=== PATIENT | male | born 1955 | race Caucasian/White ===

== ENCOUNTER 2016-12-30 14:02 | Inpatient (IN) | payer MEDICAID ==
--- NOTE | 2016-12-30 14:40 | ED ---
General Adult HPI <Daniel Gomez - Last Filed: 12/30/16 14:51> - General Source: patient, RN notes reviewed Mode of arrival: ambulatory Limitations: no limitations <Kathrin De Paz - Last Filed: 12/30/16 16:49> - General Chief complaint: ENT Stated complaint: Ear ache Time Seen by Provider: 12/30/16 14:15 - History of Present Illness Initial comments: This is a 61-year-old male who presents with right ear pain 4 days. 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 With further questioning patient also admits to a sore throat and painful swallowing. Patient also complains of some mild neck pain. Patient has been on 2 days of Augmentin for this right ear pain. Patient denies any fever/chills, cough, congestion, or headache. Patient is not on any anticoagulants. Patient denies any recent shortness breath, chest pain, abdominal pain, nausea/vomiting/ diarrhea, back pain, numbness, tingling, hematuria, or visual changes, or any other complaints. (Kathrin De Paz) - Related Data Home Medications Medication Instructions Recorded Confirmed Aspirin [Adult Low Dose Aspirin EC] 81 mg PO 12/30/16 Levothyroxine Sodium [Synthroid] 100 mcg PO DAILY 12/30/16 12/30/16 Lisinopril [Zestril] 10 mg PO DAILY 12/30/16 12/30/16 Simvastatin [Zocor] 20 mg PO HS 12/30/16 12/30/16 metFORMIN HCL [metFORMIN HCL ER] 750 mg PO DAILY 12/30/16 12/30/16 Allergies Allergy/AdvReac Type Severity Reaction Status Date / Time No Known Allergies Allergy Verified 12/30/16 14:12 Review of Systems ROS Other: All systems not noted in ROS Statement are negative. <Daniel Gomez - Last Filed: 12/30/16 14:51> ROS Other: All systems not noted in ROS Statement are negative. <Kathrin De Paz - Last Filed: 12/30/16 16:49> ROS Statement: Those systems with pertinent positive or pertinent negative responses have been documented in the HPI. Past Medical History Past Medical History: Diabetes Mellitus, Hypertension, Supraventricular Tachycardia (SVT), Thyroid Disorder History of Any Multi-Drug Resistant Organisms: None Reported Past Surgical History: Cardiac Ablation, Heart Catheterization Past Psychological History: No Psychological Hx Reported Smoking Status: Never smoker Past Alcohol Use History: None Reported Past Drug Use History: None Reported <Kathrin De Paz - Last Filed: 12/30/16 16:49> General Exam <Daniel Gomez - Last Filed: 12/30/16 14:51> Limitations: no limitations <Kathrin De Paz - Last Filed: 12/30/16 16:49> - General Exam Comments Initial Comments: General: The patient is awake and alert, in no distress, and does not appear acutely ill. Eye: Pupils are equal, round and reactive to light, extra-ocular movements are intact. No nystagmus. There is normal conjunctiva bilaterally. No signs of icterus. Ears: TMs pink and pearly with intact cone of light bilaterally. Normal external ear canals Nose: Nasal turbinates pink and moist Mouth and throat: There is a right sided swelling to the posterior pharynx with mild erythema. There are multiple areas of tooth decay but no erythema surrounding any teeth and no sign of tooth abscess. There are moist mucous membranes and no oral lesions. Neck: Mild tenderness to the anterior portion of the neck on the right side. The neck is supple, there is no JVD. Cardiovascular: There is a regular rate and rhythm. No murmur, rub or gallop is appreciated. Respiratory: Lungs are clear to auscultation, respirations are non-labored, breath sounds are equal. No wheezes, stridor, rales, or rhonchi. Musculoskeletal: Normal ROM, no tenderness. Strength 5/5. Sensation intact. Radial pulses equal bilaterally 2+. Neurological: A&O x 3. CN II-XII intact, There are no obvious motor or sensory deficits. Coordination appears grossly intact. Speech is normal. Skin: Skin is warm and dry and no rashes or lesions are noted. Psychiatric: Cooperative, appropriate mood & affect, normal judgment. (Kathrin De Paz) Medical Decision Making <JasonDaniel sanchez - Last Filed: 12/30/16 14:51> - Lab Data Result diagrams: 12/30/16 15:08 12/30/16 15:08 <Kathrin De Paz - Last Filed: 12/30/16 16:49> - Medical Decision Making Medical decision making. I examined the patient's throat unable to even identify the uvula the right side of the pharynx is swollen. He feels as though it's swollen mildly down the back of his throat. Local area was numbed with Hurricaine spray. #18 needle was inserted approximately 1 cm no pus was found. Patient will have a CT of the pharynx and neck to rule out retropharyngeal abscess. Dr. Gomez (Daniel Gomez) This is a 61-year-old male presents with right ear pain and mild sore throat 4 days. On physical exam There is a right sided swelling to the posterior pharynx with mild erythema. There are multiple areas of tooth decay but no erythema surrounding any teeth and no sign of tooth abscess. There are moist mucous membranes and no oral lesions. Bilateral tympanic membranes without erythema, intact cone of light bilaterally. A rapid strep was done and came back negative. Basic labs were done and reviewed. Blood cultures are pending. Patient was given a dose of Tylenol as he developed a fever during his stay in the [facility]. CT of the neck with contrast was done and reviewed showing: Abnormality right extra-axial brain, meningioma versus acute subacute extra-axial hemorrhage. Consider correlation with old outside head CT and for short-term noncontrast CT brain follow-up in 12-24 hours time to further assess. Report by Dr. Noel. I discussed the results with patient and his who was also present in the room. I discussed this case with attending physician Dr. Gomez who also examined the patient. At this time the on-call physician Dr Blake was contacted regarding patient admission. At this time patient will be admitted as an inpatient for IV antibiotics and a repeat computed tomography scan in 12-24 hours for further evaluation. Patient and were receptive to this plan patient will be admitted as an inpatient. (Kathrin De Paz) - Lab Data Lab Results 12/30/16 12/30/16 12/30/16 Range/Units 14:24 15:08 15:08 WBC 12.2 H (3.8-10.6) k/uL RBC 5.17 (4.30-5.90) m/uL Hgb 15.5 (13.0-17.5) gm/dL Hct 45.4 (39.0-53.0) % MCV 87.8 (80.0-100.0) fL MCH 29.9 (25.0-35.0) pg MCHC 34.1 (31.0-37.0) g/dL RDW 12.6 (11.5-15.5) % Plt Count 219 (150-450) k/uL Neutrophils % 83 % Lymphocytes % 10 % Monocytes % 4 % Eosinophils % 2 % Basophils % 0 % Neutrophils # 10.2 H (1.3-7.7) k/uL Lymphocytes # 1.2 (1.0-4.8) k/uL Monocytes # 0.5 (0-1.0) k/uL Eosinophils # 0.2 (0-0.7) k/uL Basophils # 0.0 (0-0.2) k/uL Sodium 142 (137-145) mmol/L Potassium 4.7 (3.5-5.1) mmol/L Chloride 105 (98-107) mmol/L Carbon Dioxide 23 (22-30) mmol/L Anion Gap 14 mmol/L BUN 17 (9-20) mg/dL Creatinine 1.10 (0.66-1.25) mg/dL Est GFR (MDRD) Af Amer >60 (>60 ml/min/1.73 sqM) Est GFR (MDRD) Non-Af >60 (>60 ml/min/1.73 sqM) Glucose 98 (74-99) mg/dL Calcium 10.1 (8.4-10.2) mg/dL Group A Strep Rapid Negative (Negative) Disposition <Daniel Gomez - Last Filed: 12/30/16 14:51> Decision Time: 16:49 <Kathrin De Paz - Last Filed: 12/30/16 16:49> Clinical Impression: Peritonsillar cellulitis, Failure of outpatient treatment Disposition: ADMITTED IP TO THIS [facility] Referrals: Kunal Menon MD [Primary Care Provider] - 1-2 days
[2016-12-30] MEDS ORDERED: RX INFO: IV CONTRAST WAS GIVEN 1 EACH MISC MISCELLANE PRN ×2 (14:50→14:53)
[2016-12-30 15:20] LABS: Basophils % (A) 0 %; CH 30.4; CHCM 34.7; Eosinophils # (A) 0.2 k/uL (0-0.7); Eosinophils % (A) 2 %; HCT 45.4 % (39.0-53.0); HDW 2.67; HGB 15.5 gm/dL (13.0-17.5); Luc % (Auto) 1; Lymphocytes # (A) 1.2 k/uL (1.0-4.8); Lymphocytes % (A) 10 %; MCH 29.9 pg (25.0-35.0); MCHC 34.1 g/dL (31.0-37.0); MCV 87.8 fL (80.0-100.0); Mean Platelet Volume 6.4; Monocytes # (A) 0.5 k/uL (0-1.0); Monocytes % (A) 4 %; Neutrophils # (A) 10.2 k/uL (1.3-7.7); Neutrophils % (A) 83 %; RBC 5.17 m/uL (4.30-5.90); RDW 12.6 % (11.5-15.5); WBC 12.2 k/uL (3.8-10.6); WBC (Perox) 12.49
[2016-12-30] MEDS ORDERED: ACETAMINOPHEN TAB 500 MG TAB PO STA (15:21)
[2016-12-30] MEDS: BENZOCAINE SPRAY 100 APPLIC/CAN MUCOUS MEM PRN (15:25)
[2016-12-30 15:30] LABS: Anion Gap 14 mmol/L; Blood Urea Nitrogen 17 mg/dL (9-20); Calcium 10.1 mg/dL (8.4-10.2); Carbon Dioxide 23 mmol/L (22-30); Chloride 105 mmol/L (98-107); Glucose 98 mg/dL (74-99); Non-African American GFR(MDRD) >60 (>60 ml/min/1.73 sqM); Potassium 4.7 mmol/L (3.5-5.1); Sodium 142 mmol/L (137-145)
--- NOTE | 2016-12-30 16:06 | CT ---
EXAMINATION TYPE: CT soft tissue neck w con DATE OF EXAM: 12/30/2016 3:56 PM HISTORY: Patient complains of right side facial, submandibular, and right side neck swelling, pain, a nd redness x4 days. COMPARISON: NONE CT DLP: 419.6 mGycm. Automated Exposure Control for Dose Reduction was Utilized. TECHNIQUE: CT scan of the neck is performed with IV Contrast, patient injected with 100 mL of Omnipa que 300, axial images are obtained, coronal and sagittal reformatted images are reviewed. FINDINGS: Airway: Thyroid gland is atrophic or absent. Parotid/submandibular glands: No gross abnormality seen. Carotid/Vascular Structures: There is mild to moderate calcified plaque in both carotid bulbs extendi ng into proximal internal carotid arteries. No hemodynamically significant stenosis is identified kathy aterally. Dominant left vertebral artery is incidentally noted. Osseous Structures: Spine is straightened on sagittal images. Other: There are prominent but subcentimeter lymph nodes scattered throughout the neck bilaterally, l argest is seen on the right sided submandibular level just above the hyoid bone measuring 14 x 7 mm o n axial image 52. Greater than 1 cm neck lymph nodes are clearly seen. No well-formed fluid collectio n or abscess is noted. There is 2.1 x 1.2 cm hyperdense structure extra-axial right temporal parietal level on axial image 9 6, differential includes meningioma versus acute/subacute extra-axial hemorrhage. IMPRESSION: Abnormality right extra-axial brain, meningioma versus acute/subacute extra-axial hemorrh age. Consider correlation with old outside head CT and/or short-term noncontrast CT brain follow-up in 12 - 24 hours time to further assess.
[2016-12-30] MEDS ORDERED: HYDROcodone/APAP 5-325MG 1 EACH TAB PO PRN (16:34)
[2016-12-30] MEDS ORDERED: NALOXONE 0.4 MG/ML 1 ML VIAL IV PRN (16:34)
[2016-12-30] MEDS ORDERED: ACETAMINOPHEN TAB 325 MG TAB PO PRN (16:34)
[2016-12-30] MEDS ORDERED: cefTRIAXone 2,000 MG in SODIUM CHLORIDE 0.9% 100 ML IVPB STA (16:39)
[2016-12-30] MEDS ORDERED: DEXAMETHASONE SOD PHOSPHATE 4 MG/ML 1 ML VIAL IV STA (16:40)
[2016-12-30] MEDS ORDERED: SODIUM CHLORIDE 0.9% 1,000 ML IV SCH (16:45)
[2016-12-30] MEDS ORDERED: AMPICILLIN-SULBACTAM 3 GM in SODIUM CHLORIDE 0.9% 100 ML IVPB STA (16:59)
[2016-12-30] MEDS ORDERED: AMPICILLIN-SULBACTAM 3 GM in SODIUM CHLORIDE 0.9% 50 ML IVPB SCH (17:15)
[2016-12-30] MEDS: IBUPROFEN 400 MG TAB PO PRN ×2 (18:03→23:11)
--- NOTE | 2016-12-30 18:42 | HP ---
DATE OF ADMISSION: 12/30/2016 ER CONSULT/ HISTORY AND PHYSICAL: This 61-year-old who came in with ear pain 4 days ago. Patient was discharged on Augmentin. Patient comes back again with increased sore throat and pain mild neck pain and patient was having drooling and fever, chills and patient does have enlarged lymph nodes along with tonsillar enlargement. On physical examination patient had a neck CT which did not show any obvious neck abscess and ENT was consulted from ER. I will start him on Unasyn. Patient will be admitted. Patient is an incidental finding on the CT of possible meningioma versus intracranial bleed. I asked ER physician to check with neurology, if neurology is agreeable, patient will be admitted here. Otherwise, patient will be transferred to an outside hospital. Patient was been having fever, chills. Has been going on for a couple of days. Was having earache as well as pain in the mastoid area. REVIEW OF SYSTEMS: CONSTITUTIONAL: No fever, no malaise, no fatigue. HEENT: As described in HPI. CARDIOVASCULAR: No chest pain, orthopnea, PND, no palpitations, no syncope. PULMONARY: No shortness of breath, no cough, no hemoptysis. GASTROINTESTINAL: No diarrhea, no nausea, no vomiting, no abdominal pain. Normoactive bowel sounds. NEUROLOGICAL: No headaches, no weakness, no numbness. HEMATOLOGICAL: Denies any bleeding or petechiae. GENITOURINARY: Denies any burning micturition, frequency, or urgency. MUSCULOSKELETAL/RHEUMATOLOGICAL: Denies any joint pain, swelling, or any muscle pain. ENDOCRINE: Denies any polyuria or polydipsia. The rest of the 14 point review of systems is negative. Home medications include: 1. Aspirin. 2. Levofloxacin. 3. Simvastatin. 4. Metformin. ALLERGIES: No known drug allergies. Past medical history of diabetes mellitus, hypertension, history of SVT, hyperthyroidism in the past. Cardiac catheterization and ( ) procedure in the past. SOCIAL HISTORY: Denied any smoking, alcohol abuse or any drug abuse. FAMILY HISTORY: Significant for hypertension and diabetes mellitus in the family. PHYSICAL EXAMINATION: VITAL SIGNS: Temperature 100.9, pulse of 70, respiratory rate of 18, blood pressure is 120/73. Saturating at 98% on room air. GENERAL: The patient is alert and oriented x3, not in any acute distress. Well developed, well nourished. HEENT: Patient has tonsillar swelling which I did not see any tonsillar exudate. Patient does have tenderness in the neck area. Patient was complaining of drooling and bit of trismus. Patient does have tenderness in the mastoid area on the right side. CARDIOVASCULAR: S1 and S2 present. No murmurs, rubs, or gallops. PULMONARY: Chest is clear to auscultation, no wheezing or crackles. ABDOMEN: Soft, nontender, nondistended, normoactive bowel sounds. No palpable organomegaly. MUSCULOSKELETAL: No joint swelling or deformity. EXTREMITIES: No cyanosis, clubbing, or pedal edema. NEUROLOGICAL: Gross neurological examination did not reveal any focal deficits. SKIN: No rashes. LABORATORY DATA: CBC and BMP are abnormal for elevated WBC count of 12,200 and group B streptococcal testing is negative. ASSESSMENT AND PLAN: 1. Sepsis secondary to upper respiratory infection including tonsillitis without any deep facial involvement, tonsillitis and inner ear infection. HEENT was consulted and patient will be started on Unasyn. 2. Hypertension. Hold off Lisinopril because of concerns of sepsis. 3. Hypothyroidism, continue with levothyroxine. 4. For hyperlipidemia, continue simvastatin. 5. For diabetes mellitus I will start him on sliding scale insulin. Patient's primary care physician ( ). 6. Incidental finding as mentioned above, will repeat a CT tomorrow, incidental finding of meningioma versus intracranial bleed, will repeat those tests again, CT again to make sure patient does not have any increasing intracranial hematoma. If patient asks ER physician to discuss about this finding with neurology, if neurology is recommending transfer to a higher facility for neurosurgical evaluation, patient will be transferred from ER for that or else this patient will be admitted here. This dictation is both the ER consult as well as H&P.
[2016-12-30 19:03] VITALS: BMI 25.8
[2016-12-30 19:22] LABS: Glucose,Whole Blood 197 mg/dL (75-99)
[2016-12-30] MEDS: ATORVASTATIN 10 MG TAB PO SCH (19:23)
[2016-12-30 21:43] VITALS: RESP 16
[2016-12-30] MEDS: AMPICILLIN-SULBACTAM 3 GM in SODIUM CHLORIDE 0.9% 100 ML IVPB SCH (23:05)
[2016-12-31] MEDS: BENZOCAINE SPRAY 100 APPLIC/CAN MUCOUS MEM PRN ×2 (02:33→13:43)
[2016-12-31] MEDS: AMPICILLIN-SULBACTAM 3 GM in SODIUM CHLORIDE 0.9% 100 ML IVPB SCH ×3 (05:03→17:15)
[2016-12-31] MEDS: LEVOTHYROXINE 100 MCG TAB PO SCH (05:03)
[2016-12-31 07:44] LABS: Glucose,Whole Blood 147 mg/dL (75-99)
[2016-12-31 08:26] LABS: ALT 32 U/L (21-72); AST 17 U/L (17-59); Alkaline Phosphatase 61 U/L (38-126); Anion Gap 12 mmol/L; Blood Urea Nitrogen 21 mg/dL (9-20); Calcium 9.9 mg/dL (8.4-10.2); Carbon Dioxide 26 mmol/L (22-30); Chloride 104 mmol/L (98-107); Glucose 134 mg/dL (74-99); Non-African American GFR(MDRD) >60 (>60 ml/min/1.73 sqM); Potassium 4.8 mmol/L (3.5-5.1); Sodium 142 mmol/L (137-145); Total Bilirubin 1.1 mg/dL (0.2-1.3); Total Protein 7.1 g/dL (6.3-8.2)
[2016-12-31 08:37] LABS: Basophils % (A) 0 %; CH 30.4; CHCM 34.8; Eosinophils % (A) 0 %; HDW 2.67; HGB 15.2 gm/dL (13.0-17.5); Luc # (Auto) 0.06; Luc % (Auto) 1; Lymphocytes # (A) 0.7 k/uL (1.0-4.8); Lymphocytes % (A) 6 %; MCH 29.5 pg (25.0-35.0); MCHC 33.6 g/dL (31.0-37.0); MCV 87.7 fL (80.0-100.0); Mean Platelet Volume 6.8; Monocytes # (A) 0.4 k/uL (0-1.0); Monocytes % (A) 3 %; Neutrophils # (A) 11.1 k/uL (1.3-7.7); Neutrophils % (A) 91 %; RBC 5.13 m/uL (4.30-5.90); RDW 12.6 % (11.5-15.5); WBC 12.2 k/uL (3.8-10.6); WBC (Perox) 12.92
[2016-12-31] MEDS ORDERED: LISINOPRIL 10 MG TAB PO SCH (09:00)
--- NOTE | 2016-12-31 09:05 | CT ---
EXAMINATION TYPE: CT brain wo con DATE OF EXAM: 12/31/2016 8:18 AM COMPARISON: CT soft tissue neck one December 2016 HISTORY: Follow up study for abnormal neck CT. Patient has no complaints at time of study. CT DLP: 1070 mGycm Automated exposure control for dose reduction was used. FINDINGS: There is no midline shift identified. Dense focus is present in the anterior aspect of the middle cr anial fossa on the right measuring approximately 2.5 x 2.3 x 1.1 cm which show some probable local ma ss effect. No endosteal scalloping. The ventricles and sulci are within normal limits in size. Perive ntricular white matter shows some low-attenuation. Cerebral vascular calcifications are present. Cor tical atrophy noted. The globes are intact and the visualized sinuses are clear. Review of patient's soft tissue neck shows low dense focus with peripheral enhancement, axial image 6 2 which could represent a tonsillar abscess measuring 13 x 14mm in greatest dimension, correlate, fol low-up is recommended, consider ENT consult. IMPRESSION: Indeterminate dense focus right frontal temporal region, findings could be indicative of meningioma, brain MR suggested with contrast. Possible tonsilar abscess, results called to Kyle at 0900 hours . Probable chronic small vessel ischemia, age related atrophy.
[2016-12-31 11:47] LABS: Glucose,Whole Blood 205 mg/dL (75-99)
[2016-12-31] MEDS: INSULIN LISPRO (humaLOG) 300 UNIT/3 ML VIAL SQ SCH ×4 (13:22→22:36)
[2016-12-31] MEDS: DEXAMETHASONE SOD PHOSPHATE 4 MG/ML 1 ML VIAL IV SCH ×2 (13:27→17:18)
[2016-12-31] MEDS: SODIUM CHLORIDE 0.9% 1,000 ML IV SCH (16:10)
[2016-12-31 16:49] LABS: Glucose,Whole Blood 143 mg/dL (75-99)
--- NOTE | 2016-12-31 16:54 | MR ---
Brain MR with and without contrast HISTORY: Abnormal brain CT Correlation to CT brain second of December 2016 Multiplanar multisequence and postcontrast images through the brain following 16 cc MultiHance IV. There is no restricted diffusion. Scattered hyperintensities are present on inversion recovery and T2 -weighted sequences within the brain approximately 20 lesions, focus of encephalomalacia present in t he right frontal lobe. The corpus callosum, pituitary, cervical medullary junction and cerebelloponti ne angles are normal. The abnormality at the level of the temporoparietal region on the right shows r elatively homogenous enhancement following contrast administration and measures approximately 3.1 x 2 .7 x 1.4 cm and shows some minimal local mass effect and is dural-based. The lesion shows isointense appearance on T1 and T2-weighted noncontrast images. The orbits show a symmetric appearance. IMPRESSION: Findings likely represent meningioma as previously described. Nonspecific white matter de myelination changes are present which may be due to chronic small vessel ischemia.
--- NOTE | 2016-12-31 17:14 | P.CNNES ---
History of Present Illness Consult date: 12/31/16 Reason for Consult: Patient with abnormal CT Scan Brain and possible meningioma. History of Present Illness: This patient is a 61-year-old right-handed white male who was brought into the emergency room yesterday with symptoms of throat pain and right ear pain for 4 days prior. Patient states he was initially seen for possible ear infection and was started on Augmentin. He continued to have increasing symptoms of sore throat and neck pain. He was brought into the emergency room on 12/30/2016 at [facility] for further evaluation. He was seen in the ER by Dr. Gomez. Computed tomography scan of the neck was ordered as there was concern for possibility of retropharyngeal abscess. ENT has been consult it and we are waiting there further recommendations. Patient underwent computed tomography scan which did reveal evidence of a possible lesion in the right parietal occipital lobe of the brain. For this reason he was sent for computed tomography scan of the brain today which confirmed a intermediate density focus over the right frontotemporal lobe. This was suggesting possibility of meningioma. He was recommended to undergo an MRI of the brain for further evaluation. This was completed today and findings are likely consistent with meningioma as described. Patient has been doing fine otherwise and has not had any headache symptoms. He does have remote history of head trauma as a young teenager. He denies any recent fever or chills. There is further evaluation for possibility of a tonsillar abscess which is to be evaluated by ENT. Patient has no previous history of seizures or head injury recently. He continues to work on a regular basis at a [employer]. We did review the results of the MRI today with the patient in detail. This is a benign meningioma and should be monitored with a repeat MRI in one year. He has no neurological deficits at this time to associate with this lesion. He denies any headaches at this time. His neurological examination is otherwise nonfocal. Neurology is now been consulted for further evaluation and recommendations. Review of Systems Constitutional: Denies chills, Denies fever Eyes: denies blurred vision, denies pain Ears, nose, mouth and throat: Denies headache, Denies sore throat Cardiovascular: Denies chest pain, Denies shortness of breath Respiratory: Denies cough Gastrointestinal: Denies abdominal pain, Denies diarrhea, Denies nausea, Denies vomiting Musculoskeletal: Denies myalgias Integumentary: Denies pruritus, Denies rash Neurological: Reports change in speech, Denies numbness, Denies weakness Psychiatric: Denies anxiety, Denies depression Endocrine: Denies fatigue, Denies weight change Past Medical History Past Medical History: Diabetes Mellitus, Hypertension, Supraventricular Tachycardia (SVT), Thyroid Disorder History of Any Multi-Drug Resistant Organisms: None Reported Past Surgical History: Cardiac Ablation, Heart Catheterization Past Anesthesia/Blood Transfusion Reactions: No Reported Reaction Past Psychological History: No Psychological Hx Reported Smoking Status: Never smoker Past Alcohol Use History: None Reported Past Drug Use History: None Reported - Past Family History Brother(s) Family Medical History: Diabetes Mellitus Medications and Allergies Home Medications Medication Instructions Recorded Confirmed Type Aspirin [Adult Low Dose Aspirin EC] 81 mg PO DAILY 12/30/16 12/30/16 History Levothyroxine Sodium [Synthroid] 100 mcg PO DAILY 12/30/16 12/30/16 History Lisinopril [Zestril] 10 mg PO DAILY 12/30/16 12/30/16 History Simvastatin [Zocor] 20 mg PO QAM 12/30/16 12/30/16 History metFORMIN HCL [metFORMIN HCL ER] 750 mg PO DAILY 12/30/16 12/30/16 History Allergies Allergy/AdvReac Type Severity Reaction Status Date / Time No Known Allergies Allergy Verified 12/30/16 19:42 Physical Examination - Vital Signs Vital Signs: Vital Signs Temp Pulse Pulse Resp BP Pulse Ox 12/31/16 07:55 97.7 F 65 16 113/74 96 12/31/16 07:35 53 L 16 12/31/16 03:20 16 12/31/16 02:43 97.9 F 53 L 16 111/71 98 12/30/16 23:38 16 12/30/16 20:00 16 12/30/16 18:51 98.8 F 81 17 136/85 97 Intake and Output 12/30/16 12/31/16 12/31/16 22:59 06:59 14:59 Other: Voiding Method Toilet Toilet Toilet # Voids 1 1 1 Weight 81.647 kg 81.647 kg Patient Weight 01/01/17 06:59 Weight 81.647 kg - Constitutional General appearance: average body habitus, cooperative - EENT EENT: PERRL, mucous membranes moist - Respiratory Respiratory: lungs clear, normal breath sounds - Cardiovascular Cardiovascular: regular rate, normal S1, normal S2 Extremities: no peripheral edema bilaterally - Gastrointestinal Gastrointestinal: normoactive bowel sounds - Integumentary Integumentary: normal - Neurologic Cranial nerve examination: PERRL, EOMI, VFF, face symmetric, tongue midline, intact gag reflex, intact corneal reflex, normal palatal elevation Speech examination: intact Sensorimotor examination: intact Detailed motor examination: grossly full strength in all extremities Motor examination - right side: 5/5: biceps, triceps, wrist flexion, wrist extension, spot man, hip flexors, knee extensors, dorsiflexion, toe extension (EHL) , plantarflexion Motor examination - left side: 5/5: biceps, triceps, wrist flexion, wrist extension, spot man, hip flexors, knee extensors, dorsiflexion, toe extension (EHL) , plantarflexion Detailed sensory examination: intact Reflex and gait examination: intact Reflexes: 1+: ankle, bicep, knee, tricep - Musculoskeletal Musculoskeletal: no pain - Psychiatric Psychiatric: mood/affect appropriate, cooperative Results - Laboratory Findings CBC and BMP: 12/31/16 07:32 12/31/16 07:32 Abnormal Lab Findings: Abnormal Labs 12/30/16 12/31/16 12/31/16 19:21 07:32 07:32 WBC 12.2 H Neutrophils # 11.1 H Lymphocytes # 0.7 L BUN 21 H Glucose 134 H POC Glucose (mg/dL) 197 H 12/31/16 07:42 WBC Neutrophils # Lymphocytes # BUN Glucose POC Glucose (mg/dL) 147 H Assessment and Plan (1) Meningioma Status: Acute Code(s): D32.9 - BENIGN NEOPLASM OF MENINGES, UNSPECIFIED (2) Peritonsillar abscess Status: Acute Code(s): J36 - PERITONSILLAR ABSCESS Plan: Patient admitted for difficulty with sore throat for 4 days prior to his admission. He is being evaluated by ENT for possible peritonsillar abscess. Patient underwent MRI of the brain today for further evaluation of right parietal lobe lesion. MRI was completed this afternoon and reveals findings indicating meningioma in the right temporal parietal lobe. Results of the MRI were reviewed today with the patient. The MRI of the brain should be repeated in one year for close monitoring. The patient does not require any additional neurological intervention at this time. He does not suffer from any headaches and has a normal neurological examination today. This is incidental finding on the MRI of the brain. As recommended we would suggest a one-year follow-up of the MRI study. Patient is being evaluated by ENT for possible. Tonsillar abscess. Were waiting they're further recommendations. Patient may follow-up in the outpatient neurology clinic in 3-4 weeks. His overall prognosis at this time remains guarded. Time with Patient: Greater than 30
[2016-12-31 18:29] VITALS: TEMP 97.7
--- NOTE | 2016-12-31 19:21 | PN ---
Patient is a 61-year-old admitted with tonsillar abscess. Patient has improvement in his symptoms as well as tonsillar swelling and although patient is incidentally found to have a mass, considering hemangioma , I will obtain a MRI of the brain. Patient is to be evaluated by ENT. REVIEW OF SYSTEMS: CARDIOVASCULAR: No chest pain, no orthopnea, no PND, no palpitations. PULMONARY: Denied any shortness of breath. No cough or hemoptysis. GASTROINTESTINAL: No diarrhea, nausea or vomiting. No abdominal pain. Normoactive bowel sounds. NEUROLOGIC: No headaches, no weakness, no numbness. Medications are reviewed. PHYSICAL EXAMINATION: VITAL SIGNS: Temperature 97.2, pulse of 66, respiratory rate of 16, blood pressure is 125/73, saturating at 100% on room air. GENERAL: The patient is alert and oriented x3, not in any acute distress. Well developed, well nourished. HEENT: As mentioned above. CARDIOVASCULAR: S1 and S2 present. No murmurs, rubs, or gallops. PULMONARY: Chest is clear to auscultation, no wheezing or crackles. ABDOMEN: Soft, nontender, nondistended, normoactive bowel sounds. No palpable organomegaly. MUSCULOSKELETAL: No joint swelling or deformity. EXTREMITIES: No cyanosis, clubbing, or pedal edema. NEUROLOGICAL: Gross neurological examination did not reveal any focal deficits. SKIN: No rashes. LABORATORY DATA: CBC, CMP are abnormal for elevated WBC count of 12,200, which is fairly stable at that level. ASSESSMENT AND PLAN: 1. Sepsis secondary to upper respiratory infection or tonsillar abscess with the possibility of involvement of the middle ear. 2. Hypertension. I will continue to hold off on lisinopril because of concerns of sepsis and blood pressure remains stable at 125/79 the last blood pressure measurement. 3. Hyperthyroidism. 4. Hyperlipidemia. 5. Diabetes mellitus type 2. 6. Incidental finding of possible meningioma on the CT. To further evaluate for the mass will obtain a brain MRI as mentioned above. PLAN: Continue with antibiotics and MRI as mentioned above. Possibility of discharge tomorrow depending on ENT recommendations.
[2016-12-31 21:10] LABS: Hemoglobin A1C 5.7 % (4.2-6.1)
[2016-12-31] MEDS: ATORVASTATIN 10 MG TAB PO SCH (21:25)
[2016-12-31 21:32] LABS: Glucose,Whole Blood 205 mg/dL (75-99)
[2016-12-31 21:38] LABS: Glucose,Whole Blood 170 mg/dL (75-99)
[2016-12-31] MEDS: FAMOTIDINE 20 MG TAB PO SCH (22:36)
[2017-01-01] MEDS: DEXAMETHASONE SOD PHOSPHATE 4 MG/ML 1 ML VIAL IV SCH ×3 (00:26→12:43)
[2017-01-01] MEDS: AMPICILLIN-SULBACTAM 3 GM in SODIUM CHLORIDE 0.9% 100 ML IVPB SCH ×2 (00:30→05:47)
[2017-01-01] MEDS: SODIUM CHLORIDE 0.9% 1,000 ML IV SCH ×2 (00:34→05:46)
[2017-01-01 01:56] VITALS: BP 118/71; PULSE 58
[2017-01-01] MEDS: LEVOTHYROXINE 100 MCG TAB PO SCH (05:42)
--- NOTE | 2017-01-01 06:16 | CONS ---
DATE OF CONSULTATION: 12/31/2016 Date of admission is 12/30/2016 REASON FOR CONSULTATION: Possible right peritonsillar abscess/cellulitis. HISTORY OF PRESENT ILLNESS: The patient is a very pleasant 61-year-old male who was seen in the emergency room on 12/30/2016 complaining of having significant pain in the right throat with swelling, some difficulty swallowing and also referred pain to the right ear. The patient is a nonsmoker. The patient states that approximately 3 or 4 days prior to coming to the emergency room he noted a slight soreness on the right side of his throat. He works at a [employer] down towards [place] and is in and out of the cold weather he states. At times he becomes quite warm and for several days he noted that he was out in the cold weather without wearing any type of head protection. After several days of the pain becoming worse, the patient did finally seek medical attention at [facility] Emergency Room. At the time of his presentation to the ER doctor, the findings were that he had significant soft tissue swelling of the right soft palate extending over to the uvula with no neck mass. A CT scan of the brain and also the neck were performed and there was some confusion because initially there was a suggestion of a peritonsillar abscess on the right side, but later CT scan of the neck did not show a definite abscess. The ER physician used a 10 mL syringe and needle and with multiple passes into the appropriate position attempted to aspirate any type of pus from a peritonsillar abscess and none was found. It was felt that most likely either there was simply peritonsillar cellulitis or there was a very, very small abscess. A later review of the CT scan showed evidence of a very small right peritonsillar abscess approximately 7 mm. Fortunately these very small abscesses tend to resorb with appropriate aggressive IV antibiotic treatment. In addition to this, the CT scan of the brain showed evidence of a possible meningioma in the right frontal lobe and therefore Neurology was consulted. I recommended that the patient be admitted not only for the possible right peritonsillar cellulitis but also because of meningioma. The patient was initially placed on Unasyn at the maximum dosage every 6 hours and also was given regular doses of dexamethasone. At the time he was seen for the consultation, the patient stated that he had noticed a marked improvement with respect to a decrease in the pain in the right ear, right throat and swelling in the right side of the throat. His voice sounded normal. He was able to handle secretions and he was eating food and resting quite comfortably in bed. He has been afebrile since his admission. Past medical history reveals he has no known allergies to medications. His current medications include baby aspirin daily, simvastatin and metformin, and he had also started a course of Augmentin from one of the clinics. REVIEW OF SYSTEMS: Cardiovascular is negative. Respiratory is negative. Gastrointestinal is negative. Metabolic/endocrine is positive for type 2 diabetes mellitus and hypercholesterolemia. In addition to this, the patient is on lisinopril for hypertension and also Synthroid for hypothyroidism. Therefore the metabolic endocrine system is also positive for hypothyroidism and the cardiovascular system is actually positive for hypertension. Therefore, the patient's past medical history reveals evidence of type 2 diabetes mellitus, hypertension and hypothyroidism. PHYSICAL EXAMINATION: This patient is a very pleasant 61-year-old male who is alert and quite cooperative and is resting comfortably and is in no acute distress. HEENT: Patient is normocephalic. Tympanic membranes are normal. Middle ear spaces are free of any fluid or infection. Pupils equal, round, and reactive to light and accommodation. Intranasal examination reveals moderate to severe septal deviation with compensatory hypertrophy of the inferior turbinates. Examination of oropharynx reveals the patient has a almost normal appearing posterior pharyngeal area with very minimal swelling of the soft tissue of the soft palate and of the right peritonsillar area. Palpation of the tongue blade is negative for any significant discomfort or pain that is to say I do not detect any evidence of any progressing abscess or cellulitis. Palpation of the neck is negative for any neck masses or lymphadenopathy. The remainder of the head and neck exam is within normal limits. CHEST/CARDIOVASCULAR: Both lung [place] are clear to percussion and auscultation. Patient is in regular sinus rhythm. S1 and S2 are present without murmurs, S3s or S4s. The remainder of physical exam was essentially unremarkable. IMPRESSION: Resolving right peritonsillar abscess/peritonsillar cellulitis. PLAN: We will continue the patient on the current course of Unasyn and the Decadron for at least the next 24 hours. I have advised the patient that from an ENT standpoint once he is cleared with neurology and with his primary care physician he could be discharged to home on Augmentin. He has approximately 14 Augmentin 875 mg tablets at home and I advised him to resume that medication by taking each tablet after meals until completely gone. I will leave him a prescription for an additional 4 days of medication for total of 14 days of the Augmentin 875. This should adequately treat any infection that is present. He is still currently being worked up for the probable meningioma of the right frontal lobe by the neurological service. I want to take this opportunity to thank you for allowing me to participate in the care of your patient. If I can be of any further assistance, please feel free to call my office.
[2017-01-01 07:09] LABS: CH 30.1; CHCM 33.8; HCT 42.4 % (39.0-53.0); HDW 2.72; HGB 13.9 gm/dL (13.0-17.5); MCH 29.3 pg (25.0-35.0); MCHC 32.8 g/dL (31.0-37.0); MCV 89.3 fL (80.0-100.0); Mean Platelet Volume 6.7; RBC 4.75 m/uL (4.30-5.90); RDW 12.6 % (11.5-15.5); WBC 14.4 k/uL (3.8-10.6)
[2017-01-01 07:14] LABS: Anion Gap 10 mmol/L; Blood Urea Nitrogen 25 mg/dL (9-20); Calcium 9.3 mg/dL (8.4-10.2); Carbon Dioxide 25 mmol/L (22-30); Chloride 108 mmol/L (98-107); Glucose 147 mg/dL (74-99); Non-African American GFR(MDRD) >60 (>60 ml/min/1.73 sqM); Potassium 4.8 mmol/L (3.5-5.1); Sodium 143 mmol/L (137-145)
[2017-01-01 07:33] LABS: Glucose,Whole Blood 131 mg/dL (75-99)
[2017-01-01] MEDS ORDERED: ALPRAZolam 0.25 MG TAB PO PRN (09:28)
[2017-01-01] MEDS: INSULIN LISPRO (humaLOG) 300 UNIT/3 ML VIAL SQ SCH ×2 (09:53→12:40)
[2017-01-01] MEDS: FAMOTIDINE 20 MG TAB PO SCH (09:54)
[2017-01-01 12:06] LABS: Glucose,Whole Blood 251 mg/dL (75-99)
--- NOTE | 2017-01-01 14:06 | P.PN ---
Subjective This patient is a 61 year old male admitted to hospital yesterday for evaluation of peritonsillar abscess. A CT Scan brain revealed evidence of a possible right temporal meningioma. He had an MRI Brain done yesterday that confirms evidence of a meningioma with other enhancing lesions. MRI of the brain was done with contrast. Meningioma measures 3 x 2 x 1.4 cm in size. As noted this likely has been present for years. We have recommended that they repeat MRI of the brain be done in one year for comparison. Patient has a nonfocal neurological examination at this time. He has no symptoms related to the incidental finding of the right temporal meningioma. Patient has been up and ambulating in the hallway today and is anxious to be discharged home. The patient was seen by ENT physician and he has been cleared for discharge on Augmentin. He should follow-up with ENT is instructed. He has a normal neurologic examination and should be clear for discharge home today. We have recommended the patient to follow-up with his primary care physician Dr. Menon next week. All of his records can be forwarded there. We'll be happy to reevaluate the patient in the outpatient neurology clinic as needed. Objective - Vital Signs Vital signs: Vital Signs Temp 97.7 F 01/01/17 01:56 Pulse 58 L 01/01/17 01:56 Resp 16 01/01/17 01:56 BP 118/71 01/01/17 01:56 Pulse Ox 95 01/01/17 01:56 Intake & Output 12/31/16 01/01/17 01/01/17 18:59 06:59 18:59 Intake Total 576 1500 Balance 576 1500 Weight 81.647 kg Intake: IV 1500 Sodium Chloride 0.9% 1, 1500 000 ml @ 125 mls/hr IV . Q8H [facility] Rx#:[id number] Oral 576 Other: Voiding Method Toilet Toilet # Voids 2 1 # Bowel Movements 1 - Exam Physical Examination: PHYSICAL EXAMINATION: Patient is resting comfortably in bed. VITAL SIGNS: Blood pressure is [118/71]. Heart rate is [58]. Respiration is [16] . Temperature is [97.7]. HEENT: Head is atraumatic, neck is supple, there were no carotid bruits. CHEST: Lungs are clear to auscultation and percussion. CARDIAC: S1, S2 normal rate and rhythm. There is no murmur. ABDOMEN: Soft and nontender. Bowel sounds are present. EXTREMITIES: There is no pedal edema. Peripheral pulses are present. Neurological examination: Patient has a nonfocal neurological exam today. - Labs CBC & Chem 7: 01/01/17 06:42 01/01/17 06:42 Labs: Abnormal Lab Results - Last 24 Hours (Table) 12/31/16 12/31/16 12/31/16 Range/Units 11:38 16:46 21:10 WBC (3.8-10.6) k/uL Chloride (98-107) mmol/L BUN (9-20) mg/dL Glucose (74-99) mg/dL POC Glucose (mg/dL) 205 H 143 H 205 H (75-99) mg/dL 12/31/16 01/01/17 01/01/17 Range/Units 21:33 06:42 06:42 WBC 14.4 H (3.8-10.6) k/uL Chloride 108 H (98-107) mmol/L BUN 25 H (9-20) mg/dL Glucose 147 H (74-99) mg/dL POC Glucose (mg/dL) 170 H (75-99) mg/dL 01/01/17 Range/Units 07:14 WBC (3.8-10.6) k/uL Chloride (98-107) mmol/L BUN (9-20) mg/dL Glucose (74-99) mg/dL POC Glucose (mg/dL) 131 H (75-99) mg/dL Assessment and Plan (1) Meningioma Status: Acute Code(s): D32.9 - BENIGN NEOPLASM OF MENINGES, UNSPECIFIED (2) Peritonsillar abscess Status: Acute Code(s): J36 - PERITONSILLAR ABSCESS Plan: Patient admitted for difficulty with sore throat for 4 days prior to his admission. He is being evaluated by ENT for possible peritonsillar abscess. Patient underwent MRI of the brain today for further evaluation of right parietal lobe lesion. MRI was completed this afternoon and reveals findings indicating meningioma in the right temporal parietal lobe. Results of the MRI were reviewed today with the patient. The MRI of the brain should be repeated in one year for close monitoring. The patient does not require any additional neurological intervention at this time. He does not suffer from any headaches and has a normal neurological examination today. This is incidental finding on the MRI of the brain. As recommended we would suggest a one-year follow-up of the MRI study. Patient is being evaluated by ENT for possible. Tonsillar abscess. Were waiting they're further recommendations. Patient may follow-up in the outpatient neurology clinic in 3-4 weeks. His overall prognosis at this time remains guarded.
--- NOTE | 2017-01-02 13:38 | DS ---
DATE OF ADMISSION: 12/30/2016 DATE OF DISCHARGE: 01/01/2017 A 61-year-old admitted with a tonsillar abscess and patient was evaluated by ENT and patient will be on discharged on Augmentin for 10 to 14 days as recommended by ENT. Patient has a meningioma, incidental finding without any symptoms and edema. Patient was evaluated by Neurology and MRI is consistent with meningioma. Patient will be discharged home with follow up with Neurology as an outpatient. Will need a repeat MRI in one year. Patient is clinically doing well. Patient was seen and examined on the day of discharge. Vitals are stable. PHYSICAL EXAMINATION: GENERAL: The patient is alert and oriented x3, not in any acute distress. Well developed, well nourished. HEENT: Pupils are round and equally reacting to light. EOMI. No scleral icterus. No conjunctival pallor. Normocephalic, atraumatic. No pharyngeal erythema. No thyromegaly. CARDIOVASCULAR: S1 and S2 present. No murmurs, rubs, or gallops. PULMONARY: Chest is clear to auscultation, no wheezing or crackles. ABDOMEN: Soft, nontender, nondistended, normoactive bowel sounds. No palpable organomegaly. MUSCULOSKELETAL: No joint swelling or deformity. EXTREMITIES: No cyanosis, clubbing, or pedal edema. NEUROLOGICAL: Gross neurological examination did not reveal any focal deficits. SKIN: No rashes. FINAL DIAGNOSES: 1. Sepsis secondary to upper respiratory infection or tonsillar abscess. 2. Hypertension. Patient's blood pressure is on the low side because of which I held lisinopril. I will cut down the dose of lisinopril because of type 2 diabetes mellitus, lisinopril has ( ). In spite of low normal blood pressures, I will go ahead and continue lisinopril, but cut down dose. 3. Hypothyroidism. 4. Hyperlipidemia. 5. Type 2 diabetes mellitus. 6. Incidental finding of meningioma on the right side, right parietal lobe. Patient will be discharged today. Please refer to my depart summary for further details of discharge medications. Activity as tolerated. Cardiac and diabetic 1800 calorie diet. Follow with primary care physician in Dr. Kunal Menon in about 3 to 5 days and follow up with Dr. Hardy Claire in about 2 weeks. Spent greater than 35 minutes in total discharge process.
== END 2017-01-01 17:21 | disposition home or self-care (01) | DRG 872 ==
LOC: EC 14:02 → 3SUR 18:05
PROVIDERS: ADMIT Internal Medicine; ATTEND Internal Medicine
DX: A41.9 Sepsis, unspecified organism (principal); I47.1 Supraventricular tachycardia; J36 Peritonsillar abscess; I10 Essential (primary) hypertension; D32.9 Benign neoplasm of meninges, unspecified; E11.9 Type 2 diabetes mellitus without complications; E03.9 Hypothyroidism, unspecified; E78.5 Hyperlipidemia, unspecified; K02.9 Dental caries, unspecified; H83.09 Labyrinthitis, unspecified ear; Z79.82 Long term (current) use of aspirin; Z79.84 Long term (current) use of oral hypoglycemic drugs; Z79.899 Other long term (current) drug therapy; Z82.49 Family history of ischemic heart disease and other diseases of the circulatory system
CPT/HCPCS: 36415; 70450; 70491; 70553; 80048; 80053; 83036; 85025; 85027; 87040; 87081; 87430; 96365; 96375; 99284

== ENCOUNTER → 2017-01-09 | Outpatient (CLI) | payer MEDICAID ==
[2017-01-09 10:48] LABS: CH 30.3; CHCM 34.3; HCT 49.3 % (39.0-53.0); HDW 2.86; MCH 28.8 pg (25.0-35.0); MCHC 32.4 g/dL (31.0-37.0); MCV 88.9 fL (80.0-100.0); Mean Platelet Volume 7.1; RBC 5.54 m/uL (4.30-5.90); RDW 12.5 % (11.5-15.5); WBC 9.1 k/uL (3.8-10.6)
[2017-01-09 11:13] LABS: ALT 55 U/L (21-72); AST 24 U/L (17-59); Alkaline Phosphatase 68 U/L (38-126); Anion Gap 10 mmol/L; Blood Urea Nitrogen 24 mg/dL (9-20); Calcium 9.5 mg/dL (8.4-10.2); Carbon Dioxide 25 mmol/L (22-30); Chloride 104 mmol/L (98-107); Cholesterol 178 mg/dL (<200); Glucose 107 mg/dL (74-99); HDL Cholesterol 45 mg/dL (40-60); Non-African American GFR(MDRD) >60 (>60 ml/min/1.73 sqM); Potassium 4.8 mmol/L (3.5-5.1); Sodium 139 mmol/L (137-145); Total Bilirubin 0.8 mg/dL (0.2-1.3); Total Protein 7.2 g/dL (6.3-8.2); Triglycerides 130 mg/dL (<150)
[2017-01-09 13:30] LABS: Hemoglobin A1C 5.9 % (4.2-6.1)
== END | disposition home or self-care (01) ==
LOC: LABWHC1 10:35
PROVIDERS: ATTEND Internal Medicine
DX: E03.9 Hypothyroidism, unspecified (principal); E11.9 Type 2 diabetes mellitus without complications; E78.5 Hyperlipidemia, unspecified
CPT/HCPCS: 36415; 80053; 80061; 83036; 84443; 85027

== ENCOUNTER → 2017-08-28 | Outpatient (CLI) | payer MEDICAID ==
--- NOTE | 2017-08-28 11:04 | XR ---
EXAMINATION TYPE: XR chest 2V DATE OF EXAM: 08/28/2017 HISTORY: J 44.9. REFERENCE: Previous study dated 01/03/2010. FINDINGS: Lung volumes are prominent. The lungs are clear. Pleural spaces are clear. The heart is not enlarged. IMPRESSION: NO ACTIVE INTRATHORACIC DISEASE.
== END | disposition home or self-care (01) ==
LOC: LABWHC1 09:53
PROVIDERS: ATTEND Internal Medicine
DX: J44.9 Chronic obstructive pulmonary disease, unspecified (principal); E03.9 Hypothyroidism, unspecified; E78.5 Hyperlipidemia, unspecified
CPT/HCPCS: 36415; 71020; 83721; 84443

== ENCOUNTER → 2017-12-04 | Outpatient (CLI) | payer MEDICAID ==
[2017-12-04 11:27] LABS: HCT 44.8 % (39.0-53.0); HGB 14.9 gm/dL (13.0-17.5); MCHC 33.2 g/dL (31.0-37.0); MCV 87.3 fL (80.0-100.0); Mean Platelet Volume 7.2; Platelet Count 191 k/uL (150-450); RBC 5.13 m/uL (4.30-5.90); RDW 13.9 % (11.5-15.5); WBC 6.5 k/uL (3.8-10.6)
[2017-12-04 11:35] LABS: ALT 55 U/L (21-72); AST 35 U/L (17-59); Albumin 3.9 g/dL (3.5-5.0); Alkaline Phosphatase 56 U/L (38-126); Anion Gap 9 mmol/L; Blood Urea Nitrogen 21 mg/dL (9-20); Calcium 9.6 mg/dL (8.4-10.2); Carbon Dioxide 29 mmol/L (22-30); Chloride 104 mmol/L (98-107); Cholesterol 124 mg/dL (<200); Glucose 101 mg/dL (74-99); HDL Cholesterol 46 mg/dL (40-60); LDL Cholesterol,Calculated 65 mg/dL (0-99); Potassium 4.5 mmol/L (3.5-5.1); Sodium 142 mmol/L (137-145); Total Bilirubin 0.8 mg/dL (0.2-1.3); Total Protein 6.6 g/dL (6.3-8.2); Triglycerides 66 mg/dL (<150)
[2017-12-04 19:27] LABS: Hemoglobin A1C 5.7 % (4.0-6.0)
== END | disposition home or self-care (01) ==
LOC: LABWHC1 10:38
PROVIDERS: ATTEND Internal Medicine
DX: E03.9 Hypothyroidism, unspecified (principal); E78.5 Hyperlipidemia, unspecified; E11.9 Type 2 diabetes mellitus without complications
CPT/HCPCS: 36415; 80053; 80061; 83036; 85027

== ENCOUNTER → 2018-04-30 | Outpatient (CLI) | payer MEDICAID ==
[2018-04-30 09:39] LABS: Calcium 9.9 mg/dL (8.4-10.2); Potassium 5.1 mmol/L (3.5-5.1)
[2018-04-30 19:38] LABS: Hemoglobin A1C 5.8 % (4.0-6.0)
== END | disposition home or self-care (01) ==
LOC: LABWHC1 08:54
PROVIDERS: ATTEND Internal Medicine
DX: E11.9 Type 2 diabetes mellitus without complications (principal); E78.5 Hyperlipidemia, unspecified
CPT/HCPCS: 36415; 80048; 83036; 83721; 84443

== ENCOUNTER → 2018-10-29 | Outpatient (CLI) | payer MEDICAID ==
[2018-10-29 10:30] LABS: Basophils # (A) 0.1 k/uL (0-0.2); Basophils % (A) 1 %; Eosinophils # (A) 0.2 k/uL (0-0.7); Eosinophils % (A) 4 %; HCT 48.6 % (39.0-53.0); HGB 16.3 gm/dL (13.0-17.5); Lymphocytes # (A) 2.3 k/uL (1.0-4.8); Lymphocytes % (A) 36 %; MCH 29.5 pg (25.0-35.0); MCHC 33.6 g/dL (31.0-37.0); MCV 87.9 fL (80.0-100.0); Mean Platelet Volume 6.6; Monocytes # (A) 0.3 k/uL (0-1.0); Monocytes % (A) 5 %; Neutrophils # (A) 3.4 k/uL (1.3-7.7); Neutrophils % (A) 53 %; Platelet Count 215 k/uL (150-450); RBC 5.53 m/uL (4.30-5.90); RDW 12.9 % (11.5-15.5); WBC 6.4 k/uL (3.8-10.6)
[2018-10-29 11:15] LABS: Appearance,Urine Clear (Clear); Bilirubin,Urine Negative (Negative); Blood,Urine Negative (Negative); Color,Urine Yellow; Glucose,Urine (UA) Negative (Negative); Ketones,Urine Negative (Negative); Leukocyte Esterase,Urine Negative (Negative); Nitrite,Urine Negative (Negative); PH, Urine 5.5 (5.0-8.0); Protein,Urine Negative (Negative); Specific Gravity,Urine 1.018 (1.001-1.035); Urobilinogen,Urine <2.0 mg/dL (<2.0)
[2018-10-29 16:47] LABS: Albumin 4.6 g/dL (3.80-4.90); Anion Gap 7.1 mmol/L (4.00-12.00); Calcium 10.2 mg/dL (8.7-10.3); Carbon Dioxide 28.9 mmol/L (21.6-31.8); Globulin 2.3 g/dL (2.1-3.7); Total Protein 6.9 g/dL (6.2-8.2)
[2018-10-29 20:59] LABS: Hemoglobin A1C 5.8 % (4.0-6.0)
== END | disposition home or self-care (01) ==
LOC: LABWHC1 09:32
PROVIDERS: ATTEND Internal Medicine
DX: E03.9 Hypothyroidism, unspecified (principal); E11.9 Type 2 diabetes mellitus without complications; E78.5 Hyperlipidemia, unspecified
CPT/HCPCS: 36415; 80053; 80061; 81003; 82043; 82570; 83036; 84443; 85025

== ENCOUNTER → 2018-12-05 | Outpatient (CLI) | payer MEDICAID ==
--- NOTE | 2018-12-05 19:07 | XR ---
EXAMINATION TYPE: XR hand complete LT DATE OF EXAM: 12/05/2018 CLINICAL HISTORY: Pain after fall injury. TECHNIQUE: Frontal, lateral and oblique images of the left hand are obtained. COMPARISON: None. FINDINGS: There is no acute fracture/dislocation evident in the left hand. Mild to moderate narrowin g throughout the PIP and DIP joints and phalanges is present. The overlying soft tissue appears unre markable. IMPRESSION: There is no acute fracture or dislocation in the left hand.
== END | disposition home or self-care (01) ==
LOC: RADXRMAIN 18:30
PROVIDERS: ATTEND Nurse Practitioner
DX: M79.642 Pain in left hand (principal)

== ENCOUNTER → 2019-04-29 | Outpatient (CLI) | payer MEDICAID ==
[2019-04-29 16:04] LABS: Anion Gap 5.9 mmol/L (4.00-12.00); Calcium 9.8 mg/dL (8.7-10.3); Carbon Dioxide 27.1 mmol/L (21.6-31.8); Potassium 4.5 mmol/L (3.5-5.5)
[2019-04-29 17:41] LABS: Hemoglobin A1C 5.9 % (4.0-6.0)
== END | disposition home or self-care (01) ==
LOC: LABWHC1 09:49
PROVIDERS: ATTEND Internal Medicine
DX: E78.5 Hyperlipidemia, unspecified (principal); E11.9 Type 2 diabetes mellitus without complications
CPT/HCPCS: 36415; 80048; 83036; 83721

== ENCOUNTER → 2019-10-04 | Outpatient (CLI) | payer MEDICAID ==
--- NOTE | 2019-10-05 03:45 | MR ---
EXAMINATION TYPE: MR lumbar spine wo con DATE OF EXAM: 10/04/2019 COMPARISON: None HISTORY: Low back pain TECHNIQUE: Multiplanar, multisequence images of the lumbar spine were acquired. Lumbar vertebra have normal alignment. Disc spaces are fairly normal. There is no compression fractur e. There is a mild posterior disc bulging at L4-5. There is developmentally large spinal canal and no spinal stenosis. Lumbar nerve roots appear fairly normal. Neural foramina are fairly well-maintained . There is no lumbar paraspinal mass. Posterior elements are intact. There is 2.5 cm cortical cyst la teral right kidney. The visualized sacroiliac joints appear intact. IMPRESSION: Minimal posterior disc bulging and herniation at L4-5. No spinal stenosis. No fracture.
== END | disposition home or self-care (01) ==
LOC: RADMRIMAIN 06:15
PROVIDERS: ATTEND Orthopaedic Surgery Orthopaedic Surgery of the Spine
DX: M51.16 Intervertebral disc disorders with radiculopathy, lumbar region (principal)
CPT/HCPCS: 72148

== ENCOUNTER → 2019-10-21 | Outpatient (CLI) | payer MEDICAID ==
[2019-10-21 11:18] LABS: Appearance,Urine Clear (Clear); Bilirubin,Urine Negative (Negative); Blood,Urine Negative (Negative); Color,Urine Yellow; Glucose,Urine (UA) Negative (Negative); Ketones,Urine Negative (Negative); Leukocyte Esterase,Urine Negative (Negative); Nitrite,Urine Negative (Negative); Protein,Urine Negative (Negative); Urobilinogen,Urine <2.0 mg/dL (<2.0)
[2019-10-21 11:26] LABS: HCT 42.8 % (39.0-53.0); HGB 14.7 gm/dL (13.0-17.5); MCH 30.6 pg (25.0-35.0); MCHC 34.4 g/dL (31.0-37.0); MCV 88.9 fL (80.0-100.0); Mean Platelet Volume 5.5; Platelet Count 268 k/uL (150-450); RBC 4.82 m/uL (4.30-5.90); RDW 13.3 % (11.5-15.5); WBC 11.4 k/uL (3.8-10.6)
[2019-10-21 16:56] LABS: African American GFR (CKD) 67.3 (60.0-200.0); Albumin 4.4 g/dL (3.80-4.90); Albumin/Globulin Ratio 2.1 (1.60-3.17); Anion Gap 4.8 mmol/L (4.00-12.00); BUN/Creat Ratio 21.54 Ratio (12.00-20.00); Carbon Dioxide 29.2 mmol/L (21.6-31.8); Globulin 2.1 g/dL (1.6-3.3); Non-African American GFR(CKD) 58.1 (60.0-200.0); Potassium 4.9 mmol/L (3.5-5.5); Total Bilirubin 1.1 mg/dL (0.3-1.2); Total Protein 6.5 g/dL (6.2-8.2)
[2019-10-21 20:23] LABS: Hemoglobin A1C 5.7 % (4.0-6.0)
== END | disposition home or self-care (01) ==
LOC: LABWHC1 10:30
PROVIDERS: ATTEND Internal Medicine
DX: E78.5 Hyperlipidemia, unspecified (principal); E11.9 Type 2 diabetes mellitus without complications
CPT/HCPCS: 36415; 80053; 81003; 82043; 82465; 82570; 83036; 83721; 85027

== ENCOUNTER 2020-01-05 08:28 | Day surgery (SDC) | payer MEDICAID ==
[2020-01-04 09:11] VITALS: BMI 25.1
[~2020-01-05 08:28] MED LIST: DEXAMETHASONE SOD PHOSPHATE 10 MG/ML 1 ML VIAL IV ONE; LACTATED RINGERS 1,000 ML IV SCH; LIDOCAINE 1% 20 ML VIAL (10MG/ML) FOR IV START INTRADERMA PRN; ONDANSETRON 4 MG/2 ML VIAL IVP ONE; SCOPOLAMINE 1.5MG/72HR PATCH TRANSDERM ONE
[2020-01-05 08:46] VITALS: TEMP 97.4
[2020-01-05 08:53] LABS: Glucose,Whole Blood 94 mg/dL (75-99)
[2020-01-05] MEDS ORDERED: PROPOFOL 10 MG/ML 20 ML VIAL IV ONE (09:29)
--- NOTE | 2020-01-05 09:45 | P.PCN ---
Date of Procedure: 01/05/20 Procedure(s) Performed: BRIEF HISTORY: Patient is a 64-year-old pleasant male scheduled for an elective colonoscopy as a part of screening for colorectal neoplasia. PROCEDURE PERFORMED: Colonoscopy. PREOPERATIVE DIAGNOSIS: Screening for colon cancer. IV sedation per Anesthesia. PROCEDURE: After informed consent was obtained, the patient, was brought into the endoscopy unit. IV sedation was administered by Anesthesia under continuous monitoring. Digital rectal examination was normal. Initially the Olympus CF-160 flexible video colonoscope was then inserted in the rectum, gradually advanced into the cecum without any difficulty. Careful examination was performed as the scope was gradually being withdrawn. Ileocecal valve and the appendiceal orifice were visualized and appeared normal. Prep was excellent. Mucosa of the cecum, ascending colon, transverse colon, descending colon, sigmoid colon, and rectum appeared normal. Scattered sigmoidal reticulosis. Retroflexion was performed in the rectum and no lesions were seen. The patient tolerated the procedure well. IMPRESSION: Normal-appearing colon from rectum to cecum with no evidence of colorectal neoplasia . Scattered sigmoid diverticulosis. RECOMMENDATIONS: Findings of this examination were discussed with the patient as well as his family. He was advised to have a repeat screening colonoscopy in 10 years.
[2020-01-05] MEDS ORDERED: IV FLUID CONTINUATION 1,000 ML IV ONE (09:47)
[2020-01-05 10:05] VITALS: BP 105/78; PULSE 72; RESP 18
== END 2020-01-05 10:19 | disposition home or self-care (01) ==
LOC: ORWHC2ENDO 08:28
PROVIDERS: ATTEND Internal Medicine Gastroenterology
DX: Z12.11 Encounter for screening for malignant neoplasm of colon (principal); K57.30 Diverticulosis of large intestine without perforation or abscess without bleeding; I10 Essential (primary) hypertension; E78.5 Hyperlipidemia, unspecified; E11.9 Type 2 diabetes mellitus without complications; E07.9 Disorder of thyroid, unspecified; Z79.84 Long term (current) use of oral hypoglycemic drugs; Z79.899 Other long term (current) drug therapy; Z79.890 Hormone replacement therapy; Z98.890 Other specified postprocedural states; Z86.79 Personal history of other diseases of the circulatory system
CPT/HCPCS: J2704; G0121

== ENCOUNTER → 2020-05-20 | Outpatient (CLI) | payer MEDICAID ==
[2020-05-20 07:43] LABS: HGB 15.8 gm/dL (13.0-17.5); MCHC 34.4 g/dL (31.0-37.0); MCV 90.1 fL (80.0-100.0); Mean Platelet Volume 6.8; Platelet Count 192 k/uL (150-450); RBC 5.11 m/uL (4.30-5.90); RDW 13.2 % (11.5-15.5)
[2020-05-20 11:54] LABS: African American GFR (CKD) 61.1 (60.0-200.0); Anion Gap 8.2 mmol/L (4.00-12.00); BUN/Creat Ratio 20.71 Ratio (12.00-20.00); Calcium 9.6 mg/dL (8.7-10.3); Carbon Dioxide 25.8 mmol/L (21.6-31.8); Chol/HDL Ratio 3.84; LDL Cholesterol,Calculated 73.4 mg/dL (0.0-131.0); Non-African American GFR(CKD) 52.7 (60.0-200.0); Potassium 4.5 mmol/L (3.5-5.5); VLDL Calculation 48.6 mg/dL (5.00-40.00)
[2020-05-20 13:33] LABS: Hemoglobin A1C 6.3 % (4.0-6.0)
== END | disposition home or self-care (01) ==
LOC: LABWHC1 07:04
PROVIDERS: ATTEND Internal Medicine
DX: E11.9 Type 2 diabetes mellitus without complications (principal); E03.9 Hypothyroidism, unspecified; E78.5 Hyperlipidemia, unspecified; N40.0 Benign prostatic hyperplasia without lower urinary tract symptoms
CPT/HCPCS: 36415; 80048; 80061; 83036; 84153; 84443; 85027

== ENCOUNTER → 2020-10-14 | Outpatient (CLI) | payer MEDICAID ==
[2020-10-14 08:24] LABS: ALT 20 U/L (4-49); AST 23 U/L (17-59); African American GFR (CKD) 58 (>60 ml/min/1.73 sqM); Albumin 4.3 g/dL (3.5-5.0); Albumin/Globulin Ratio 1.5; Alkaline Phosphatase 56 U/L (38-126); Anion Gap 5 mmol/L; Blood Urea Nitrogen 24 mg/dL (9-20); Calcium 9.7 mg/dL (8.4-10.2); Carbon Dioxide 27 mmol/L (22-30); Chloride 106 mmol/L (98-107); Cholesterol 193 mg/dL (<200); Globulin 2.9 g/dL; Glucose 122 mg/dL (74-99); HDL Cholesterol 46 mg/dL (40-60); LDL Cholesterol,Calculated 121 mg/dL (0-99); Non-African American GFR(CKD) 51 (>60 ml/min/1.73 sqM); Potassium 4.5 mmol/L (3.5-5.1); Sodium 138 mmol/L (137-145); Total Bilirubin 0.8 mg/dL (0.2-1.3); Total Protein 7.2 g/dL (6.3-8.2); Triglycerides 129 mg/dL (<150)
[2020-10-14 13:29] LABS: Hemoglobin A1C 5.7 % (4.0-6.0)
== END | disposition home or self-care (01) ==
LOC: LABWHC1 07:26
PROVIDERS: ATTEND Internal Medicine
DX: E11.9 Type 2 diabetes mellitus without complications (principal); E78.5 Hyperlipidemia, unspecified
CPT/HCPCS: 36415; 80053; 80061; 83036

== ENCOUNTER 2022-07-18 08:58 | Emergency (ER) | payer MEDICAID, MEDICARE ==
[2022-07-18 09:09] VITALS: TEMP 97.5
[2022-07-18] MEDS ORDERED: PANTOPRAZOLE 40 MG/10 ML VIAL IVP STA ×2 (09:13→09:38)
[2022-07-18 09:34] LABS: Basophils # (A) 0.1 k/uL (0-0.2); Basophils % (A) 1 %; Eosinophils # (A) 0.3 k/uL (0-0.7); Eosinophils % (A) 4 %; HCT 33.7 % (39.0-53.0); HGB 11.6 gm/dL (13.0-17.5); Lymphocytes # (A) 2.5 k/uL (1.0-4.8); Lymphocytes % (A) 32 %; MCH 30.5 pg (25.0-35.0); MCHC 34.4 g/dL (31.0-37.0); MCV 88.9 fL (80.0-100.0); Mean Platelet Volume 7.6; Monocytes # (A) 0.3 k/uL (0-1.0); Monocytes % (A) 4 %; Neutrophils # (A) 4.7 k/uL (1.3-7.7); Neutrophils % (A) 59 %; Platelet Count 268 k/uL (150-450); RBC 3.79 m/uL (4.30-5.90); RDW 12.7 % (11.5-15.5)
[2022-07-18 09:48] LABS: Calcium 9.4 mg/dL (8.4-10.2); Magnesium 1.6 mg/dL (1.6-2.3); Potassium 4.5 mmol/L (3.5-5.1); Total Bilirubin 0.5 mg/dL (0.2-1.3); Total Protein 6.6 g/dL (6.3-8.2)
--- NOTE | 2022-07-18 09:53 | ED ---
General Adult HPI - General Chief complaint: GI Bleed Stated complaint: GI Bleed Time Seen by Provider: 07/18/22 09:01 Source: patient, RN notes reviewed, old records reviewed Mode of arrival: ambulatory Limitations: no limitations - History of Present Illness Initial comments: 67-year-old male presenting for evaluation of dark stool and lightheadedness. Patient states for the past 3 days he's had black bowel movements daily. No significant abdominal pain. The patient has felt lightheaded and nearly passed out yesterday while at a baseball game. He denies alcohol use. Denies NSAID use. He has a history of hypertension and diabetes. No anticoagulation. No chest pain. No significant abdominal pain. - Related Data Home Medications Medication Instructions Recorded Confirmed Levothyroxine Sodium [Synthroid] 100 mcg PO QAM 12/30/16 01/05/20 Simvastatin [Zocor] 20 mg PO QAM 12/30/16 01/05/20 metFORMIN HCL [metFORMIN HCL ER] 750 mg PO BID 12/30/16 01/05/20 lisinopriL [Zestril] 10 mg PO QAM 01/04/20 01/05/20 Allergies Allergy/AdvReac Type Severity Reaction Status Date / Time No Known Allergies Allergy Verified 07/18/22 09:09 Review of Systems ROS Statement: Those systems with pertinent positive or pertinent negative responses have been documented in the HPI. ROS Other: All systems not noted in ROS Statement are negative. Past Medical History Past Medical History: Diabetes Mellitus, Hypertension, Supraventricular Tachycardia (SVT), Thyroid Disorder History of Any Multi-Drug Resistant Organisms: None Reported Past Surgical History: Cardiac Ablation, Heart Catheterization Past Anesthesia/Blood Transfusion Reactions: No Reported Reaction Past Psychological History: No Psychological Hx Reported Smoking Status: Never smoker Past Alcohol Use History: None Reported Past Drug Use History: None Reported - Past Family History Brother(s) Family Medical History: Diabetes Mellitus General Exam Limitations: no limitations General appearance: alert, in no apparent distress Head exam: Present: atraumatic, normocephalic Eye exam: Present: normal appearance, PERRL ENT exam: Present: normal exam Neck exam: Present: normal inspection. Absent: tenderness, meningismus Respiratory exam: Present: normal lung sounds bilaterally. Absent: respiratory distress, wheezes Cardiovascular Exam: Present: regular rate, normal rhythm GI/Abdominal exam: Present: soft. Absent: distended, tenderness, guarding, rebound Rectal exam: Present: black stool. Absent: hemorrhoids Extremities exam: Present: normal inspection, normal capillary refill. Absent: pedal edema Neurological exam: Present: alert, oriented X3, CN II-XII intact. Absent: motor sensory deficit Psychiatric exam: Present: normal affect, normal mood Skin exam: Present: warm, dry, intact Course Vital Signs 07/18/22 07/18/22 09:07 10:42 Temperature 97.5 F L Pulse Rate 63 52 L Respiratory 20 18 Rate Blood Pressure 120/78 111/84 O2 Sat by Pulse 99 96 Oximetry - Reevaluation(s) Reevaluation #1: 07/18/22 11:06 Admission orders were placed under this patient inadvertently. These were or dered for patient with ACS and there was a consult placed to cardiology aspirin order an additional medications. None of these medications were given the only medications given to this patient is 80 mg of Protonix and 75 mL of normal saline per hour. All orders that were accidentally placed were discontinued. EKG Findings - EKG Comments: EKG Findings:: Sinus bradycardia rate of 55, DE interval 145, QRS duration 82, QTC [address] segment elevation. Medical Decision Making - Medical Decision Making 67-year-old male presenting with suspected upper GI bleed. Symptoms of melena and lightheadedness. Patient has melanotic stool on rectal exam which is heme positive. He has a hemoglobin of 11.6 from prior 2 years ago of 15.8. His CMP shows normal electrolytes, mildly elevated serum creatinine at 1.5. Patient receives 80 mg of Protonix. This institution does not currently have gastroenterology and therefore the patient will be transferred to [facility]. Accepting physician, Dr. Sanchez, and Dr. Davis. - Lab Data Result diagrams: 07/18/22 09:22 07/18/22 09:22 Lab Results 07/18/22 07/18/22 07/18/22 Range/Units : 09: 09:22 WBC 8.0 (3.8-10.6) k/uL RBC 3.79 L (4.30-5.90) m/uL Hgb 11.6 L (13.0-17.5) gm/dL Hct 33.7 L (39.0-53.0) % MCV 88.9 (80.0-100.0) fL MCH 30.5 (25.0-35.0) pg MCHC 34.4 (31.0-37.0) g/dL RDW 12.7 (11.5-15.5) % Plt Count 268 (150-450) k/uL MPV 7.6 Neutrophils % 59 % Lymphocytes % 32 % Monocytes % 4 % Eosinophils % 4 % Basophils % 1 % Neutrophils # 4.7 (1.3-7.7) k/uL Lymphocytes # 2.5 (1.0-4.8) k/uL Monocytes # 0.3 (0-1.0) k/uL Eosinophils # 0.3 (0-0.7) k/uL Basophils # 0.1 (0-0.2) k/uL PT 10.7 (9.0-12.0) sec INR 1.0 (<1.2) APTT 24.7 (22.0-30.0) sec Sodium 137 (137-145) mmol/L Potassium 4.5 (3.5-5.1) mmol/L Chloride 104 (98-107) mmol/L Carbon Dioxide 24 (22-30) mmol/L Anion Gap 9 mmol/L BUN 47 H (9-20) mg/dL Creatinine 1.44 H (0.66-1.25) mg/dL Est GFR (CKD-EPI)AfAm 58 (>60 ml/min/1.73 sqM) Est GFR (CKD-EPI)NonAf 50 (>60 ml/min/1.73 sqM) Glucose 114 H (74-99) mg/dL Plasma Lactic Acid Emerson (0.7-2.0) mmol/L Calcium 9.4 (8.4-10.2) mg/dL Magnesium 1.6 (1.6-2.3) mg/dL Total Bilirubin 0.5 (0.2-1.3) mg/dL AST 23 (17-59) U/L ALT 20 (4-49) U/L Alkaline Phosphatase 50 (38-126) U/L Troponin I (0.000-0.034) ng/mL Total Protein 6.6 (6.3-8.2) g/dL Albumin 4.0 (3.5-5.0) g/dL Lipase 219 (23-300) U/L Stool Occult Blood (Negative) Blood Type Blood Type Recheck Bld Type Recheck Status Antibody Screen Spec Expiration Date 07/18/22 07/18/22 07/18/22 Range/Units 09:22 09:22 09:22 WBC (3.8-10.6) k/uL RBC (4.30-5.90) m/uL Hgb (13.0-17.5) gm/dL Hct (39.0-53.0) % MCV (80.0-100.0) fL MCH (25.0-35.0) pg MCHC (31.0-37.0) g/dL RDW (11.5-15.5) % Plt Count (150-450) k/uL MPV Neutrophils % % Lymphocytes % % Monocytes % % Eosinophils % % Basophils % % Neutrophils # (1.3-7.7) k/uL Lymphocytes # (1.0-4.8) k/uL Monocytes # (0-1.0) k/uL Eosinophils # (0-0.7) k/uL Basophils # (0-0.2) k/uL PT (9.0-12.0) sec INR (<1.2) APTT (22.0-30.0) sec Sodium (137-145) mmol/L Potassium (3.5-5.1) mmol/L Chloride (98-107) mmol/L Carbon Dioxide (22-30) mmol/L Anion Gap mmol/L BUN (9-20) mg/dL Creatinine (0.66-1.25) mg/dL Est GFR (CKD-EPI)AfAm (>60 ml/min/1.73 sqM) Est GFR (CKD-EPI)NonAf (>60 ml/min/1.73 sqM) Glucose (74-99) mg/dL Plasma Lactic Acid Emerson 1.0 (0.7-2.0) mmol/L Calcium (8.4-10.2) mg/dL Magnesium (1.6-2.3) mg/dL Total Bilirubin (0.2-1.3) mg/dL AST (17-59) U/L ALT (4-49) U/L Alkaline Phosphatase (38-126) U/L Troponin I <0.012 (0.000-0.034) ng/mL Total Protein (6.3-8.2) g/dL Albumin (3.5-5.0) g/dL Lipase (23-300) U/L Stool Occult Blood (Negative) Blood Type O Positive Blood Type Recheck No Previous Record Bld Type Recheck Status CABO Indicated Antibody Screen NEGATIVE Spec Expiration Date 07/21/2022 - 232107/18/22 Range/Units 09:38 WBC (3.8-10.6) k/uL RBC (4.30-5.90) m/uL Hgb (13.0-17.5) gm/dL Hct (39.0-53.0) % MCV (80.0-100.0) fL MCH (25.0-35.0) pg MCHC (31.0-37.0) g/dL RDW (11.5-15.5) % Plt Count (150-450) k/uL MPV Neutrophils % % Lymphocytes % % Monocytes % % Eosinophils % % Basophils % % Neutrophils # (1.3-7.7) k/uL Lymphocytes # (1.0-4.8) k/uL Monocytes # (0-1.0) k/uL Eosinophils # (0-0.7) k/uL Basophils # (0-0.2) k/uL PT (9.0-12.0) sec INR (<1.2) APTT (22.0-30.0) sec Sodium (137-145) mmol/L Potassium (3.5-5.1) mmol/L Chloride (98-107) mmol/L Carbon Dioxide (22-30) mmol/L Anion Gap mmol/L BUN (9-20) mg/dL Creatinine (0.66-1.25) mg/dL Est GFR (CKD-EPI)AfAm (>60 ml/min/1.73 sqM) Est GFR (CKD-EPI)NonAf (>60 ml/min/1.73 sqM) Glucose (74-99) mg/dL Plasma Lactic Acid Emerson (0.7-2.0) mmol/L Calcium (8.4-10.2) mg/dL Magnesium (1.6-2.3) mg/dL Total Bilirubin (0.2-1.3) mg/dL AST (17-59) U/L ALT (4-49) U/L Alkaline Phosphatase (38-126) U/L Troponin I (0.000-0.034) ng/mL Total Protein (6.3-8.2) g/dL Albumin (3.5-5.0) g/dL Lipase (23-300) U/L Stool Occult Blood Positive (Negative) Blood Type Blood Type Recheck Bld Type Recheck Status Antibody Screen Spec Expiration Date Disposition Clinical Impression: Melena, GI bleed Disposition: OTHER INSTITUTION NOT DEFINED Condition: Stable Is patient prescribed a controlled substance at d/c from ED?: No Referrals: Kunal Menon MD [Primary Care Provider] - 1-2 days Time of Disposition: 09:52 - Out of Hospital Transfer - Req. Specs Out of Hospital Transfer - Requested Specifics: Other Emergency Center ([facility])
[2022-07-18 09:57] LABS: Partial Thromboplastin Time 24.7 sec (22.0-30.0); Prothrombin Time 10.7 sec (9.0-12.0)
[2022-07-18] MEDS ORDERED: SODIUM CHLORIDE 0.9% 1,000 ML IV SCH (10:15)
[2022-07-18 10:43] VITALS: BP 111/84; PULSE 52; RESP 18
[2022-07-19] MEDS ORDERED: ASPIRIN 325 MG TAB PO SCH (09:00)
== END 2022-07-18 10:43 | disposition short-term general hospital (02) ==
LOC: EC 08:58
DX: K92.1 Melena (principal); K92.2 Gastrointestinal hemorrhage, unspecified; E11.9 Type 2 diabetes mellitus without complications; I10 Essential (primary) hypertension; E07.9 Disorder of thyroid, unspecified; Z79.84 Long term (current) use of oral hypoglycemic drugs; Z79.890 Hormone replacement therapy; Z79.899 Other long term (current) drug therapy
CPT/HCPCS: 36415; 93005; 86900; 86901; 80053; 83605; 83690; 83735; 84484; 85025; 85610; 85730; 86850; 82272; 99285; 96374; 96376; C9113

== ENCOUNTER 2023-03-23 08:49 | Observation (INO) | payer MEDICARE ==
[2023-03-23] MEDS ORDERED: SODIUM CHLORIDE 0.9% 500 ML 500 ML IV STA (09:24)
[2023-03-23 09:40] LABS: Basophils # (A) 0.1 k/uL (0-0.2); Basophils % (A) 1 %; Eosinophils # (A) 0.1 k/uL (0-0.7); Eosinophils % (A) 1 %; HCT 33.4 % (39.0-53.0); HGB 11.6 gm/dL (13.0-17.5); Lymphocytes # (A) 2.1 k/uL (1.0-4.8); Lymphocytes % (A) 22 %; MCH 29.8 pg (25.0-35.0); MCHC 34.6 g/dL (31.0-37.0); MCV 86.3 fL (80.0-100.0); Mean Platelet Volume 7.4; Monocytes # (A) 0.3 k/uL (0-1.0); Monocytes % (A) 3 %; Neutrophils # (A) 6.7 k/uL (1.3-7.7); Neutrophils % (A) 72 %; Platelet Count 231 k/uL (150-450); RBC 3.87 m/uL (4.30-5.90); RDW 12.8 % (11.5-15.5); WBC 9.3 k/uL (3.8-10.6)
[2023-03-23 09:54] LABS: Partial Thromboplastin Time 22.3 sec (22.0-30.0); Prothrombin Time 10.9 sec (9.0-12.0)
[2023-03-23 10:06] LABS: Albumin 3.8 g/dL (3.5-5.0); Calcium 9.4 mg/dL (8.4-10.2); Magnesium 1.5 mg/dL (1.6-2.3); Potassium 4.5 mmol/L (3.5-5.1); Total Bilirubin 0.7 mg/dL (0.2-1.3); Total Protein 6.4 g/dL (6.3-8.2)
--- NOTE | 2023-03-23 10:20 | ED ---
General Adult HPI - General Chief complaint: GI Bleed Stated complaint: blood in stool Time Seen by Provider: 03/23/23 09:00 Source: patient, RN notes reviewed, old records reviewed Mode of arrival: ambulatory Limitations: no limitations - History of Present Illness Initial comments: This is an 68-year-old male who presents emergency Department complaining of blood in his stool. Patient states his stools dark black which she had before in the past with a GI bleed. Patient denies being on any blood thinners. Patient states he has a little abdominal discomfort but nothing major. Patient denies any recent fevers or chills per patient denies any nausea vomiting. Patient states he symptoms started yesterday and per cardiac tilt today. Patient states he did feel little bit weaker today so he decided to come in and get evaluated. Patient denies any difficulty breathing shortness of breath or chest pain. - Related Data Home Medications Medication Instructions Recorded Confirmed Levothyroxine Sodium [Synthroid] 100 mcg PO DAILY 12/30/16 03/23/23 Simvastatin [Zocor] 20 mg PO DAILY 12/30/16 03/23/23 metFORMIN HCL [metFORMIN HCL ER] 750 mg PO DAILY 12/30/16 03/23/23 lisinopriL [Zestril] 10 mg PO DAILY 01/04/20 03/23/23 Allergies Allergy/AdvReac Type Severity Reaction Status Date / Time No Known Allergies Allergy Verified 03/23/23 09:43 Review of Systems ROS Statement: Those systems with pertinent positive or pertinent negative responses have been documented in the HPI. ROS Other: All systems not noted in ROS Statement are negative. Past Medical History Past Medical History: Diabetes Mellitus, GI Bleed, Hypertension, Supraventricular Tachycardia (SVT), Thyroid Disorder History of Any Multi-Drug Resistant Organisms: None Reported Past Surgical History: Cardiac Ablation, Heart Catheterization Past Anesthesia/Blood Transfusion Reactions: No Reported Reaction Past Psychological History: No Psychological Hx Reported Smoking Status: Never smoker Past Alcohol Use History: None Reported Past Drug Use History: None Reported - Past Family History Brother(s) Family Medical History: Diabetes Mellitus General Exam - General Exam Comments Initial Comments: GENERAL: Patient is well-developed and well-nourished. Patient is nontoxic and well-hydrated and is in no acute distress. ENT: Neck is soft and supple. No significant lymphadenopathy is noted. Oropharynx is clear. Moist mucous membranes. Neck has full range of motion without eliciting any pain. EYES: The sclera were anicteric and conjunctiva were pink and moist. Extraocular movements were intact and pupils were equal round and reactive to light. Eyelids were unremarkable. PULMONARY: Unlabored respirations. Good breath sounds bilaterally. No audible rales rhonchi or wheezing was noted. CARDIOVASCULAR: There is a regular rate and rhythm without any murmurs gallops or rubs. ABDOMEN: Soft and nontender with normal bowel sounds. SKIN: Skin is clear with no lesions or rashes and otherwise unremarkable. NEUROLOGIC: Patient is alert and oriented x3. Cranial nerves II through XII are grossly intact. Motor and sensory are also intact. Normal speech, volume and content. Symmetrical smile. MUSCULOSKELETAL: Normal extremities with adequate strength and full range of motion. LYMPHATICS: No significant lymphadenopathy is noted PSYCHIATRIC: Normal psychiatric evaluation. Limitations: no limitations Course Vital Signs 03/23/23 03/23/23 08:56 09:23 Temperature 97.5 F L Pulse Rate 74 77 Respiratory 18 18 Rate Blood Pressure 108/71 O2 Sat by Pulse 100 100 Oximetry Medical Decision Making - Medical Decision Making Was pt. sent in by a medical professional or institution (, PA, REPAIR SUPERVISOR, urgent care, hospital, or assisted...) When possible be specific @ -[No] Did you speak to anyone other than the patient for history (EMS, parent, family, police, friend...)? What history was obtained from this source @ -I spoke with the daughter about a lot of the patient's history Did you review nursing and triage notes (agree or disagree)? Why? @ -[I reviewed and agree with nursing and triage notes] Were old charts reviewed (outside hosp., previous admission, EMS record, old EKG , old radiological studies, urgent care reports/EKG's, assisted records)? Report findings @ -I reviewed prior lab work in prior charts on this patient Differential Diagnosis (chest pain, altered mental status, abdominal pain women, abdominal pain men, vaginal bleeding, weakness, fever, dyspnea, syncope, headache, dizziness, GI bleed, back pain, seizure, CVA, palpatations, mental health, musculoskeletal)? @ -Differential GI Bleed: Esophageal varices, aortoenteric fistula, Jocelyn-Bingham, gastritis, peptic ulcer disease, diverticulosis, inflammatory bowel disease, hemorrhoids, fissure, colitis, malignancy, Meckels diverticulum, this is not meant to be an all- inclusive list. EKG interpreted by me (3pts min.). @ -[As above] X-rays interpreted by me (1pt min.). @ -[None done] CT interpreted by me (1pt min.). @ -[None done] U/S interpreted by me (1pt. min.). @ -[None done] What testing was considered but not performed or refused? (CT, X-rays, U/S, labs)? Why? @ -[None] What meds were considered but not given or refused? Why? @ -[None] Did you discuss the management of the patient with other professionals (professionals i.e. , PA, REPAIR SUPERVISOR, lab, RT, psych nurse, social and political studies professor, social media coordinator, teacher, loan servicing officer, case mgr)? Give summary @ -I spoke with Dr. Rice he agreed to be on consult for this patient. I spoke with Dr. Avery she agreed to admit the patient. Was smoking cessation discussed for >3mins.? @ -[No] Was critical care preformed (if so, how long)? @ -[No] Were there social determinants of health that impacted care today? How? (Homelessness, low income, unemployed, alcoholism, drug addiction, transportation, low edu. Level, literacy, decrease access to med. care, skilled nursing, rehab)? @ -[No] Was there de-escalation of care discussed even if they declined (Discuss DNR or withdrawal of care, Hospice)? DNR status @ -[No] What co-morbidities impacted this encounter? (DM, HTN, Smoking, COPD, CAD, Cancer, CVA, ARF, Chemo, Hep., AIDS, mental health diagnosis, sleep apnea, mo rbid obesity)? @ -[None] Was patient admitted / discharged? Hospital course, mention meds given and route, prescriptions, significant lab abnormalities, going to OR and other pertinent info. @ -Patient's hemoglobin was 11.6. Patient refused to be transferred any other facility so I spoke with Dr. Rice he was agreement Undiagnosed new problem with uncertain prognosis? @ -[No] Drug Therapy requiring intensive monitoring for toxicity (Heparin, Nitro, Insulin, Cardizem)? @ -[No] Were any procedures done? @ -[No] Diagnosis/symptom? @ -GI bleed Acute, or Chronic, or Acute on Chronic? @ -Acute Uncomplicated (without systemic symptoms) or Complicated (systemic symptoms)? @ -Complicated Side effects of treatment? @ -[No] Exacerbation, Progression, or Severe Exacerbation? @ -[No] Poses a threat to life or bodily function? How? (Chest pain, [place], [place], pneumonia, PE, COPD, DKA, ARF, appy, cholecystitis, CVA, Diverticulitis, Homicidal, Suicidal, threat to staff... and all critical care pts) @ -Yes this could lead to anemia which can lead to end organ dysfunction - Lab Data Result diagrams: 03/23/23 09:27 03/23/23 09:27 Lab Results 03/23/23 03/23/23 03/23/23 Range/Units 09:27 09:27 09:27 WBC 9.3 (3.8-10.6) k/uL RBC 3.87 L (4.30-5.90) m/uL Hgb 11.6 L (13.0-17.5) gm/dL Hct 33.4 L (39.0-53.0) % MCV 86.3 (80.0-100.0) fL MCH 29.8 (25.0-35.0) pg MCHC 34.6 (31.0-37.0) g/dL RDW 12.8 (11.5-15.5) % Plt Count 231 (150-450) k/uL MPV 7.4 Neutrophils % 72 % Lymphocytes % 22 % Monocytes % 3 % Eosinophils % 1 % Basophils % 1 % Neutrophils # 6.7 (1.3-7.7) k/uL Lymphocytes # 2.1 (1.0-4.8) k/uL Monocytes # 0.3 (0-1.0) k/uL Eosinophils # 0.1 (0-0.7) k/uL Basophils # 0.1 (0-0.2) k/uL PT 10.9 (9.0-12.0) sec INR 1.0 (<1.2) APTT 22.3 (22.0-30.0) sec Sodium 138 (137-145) mmol/L Potassium 4.5 (3.5-5.1) mmol/L Chloride 107 (98-107) mmol/L Carbon Dioxide 24 (22-30) mmol/L Anion Gap 7 mmol/L BUN 52 H (9-20) mg/dL Creatinine 1.29 H (0.66-1.25) mg/dL Est GFR (CKD-EPI)AfAm 66 (>60 ml/min/1.73 sqM) Est GFR (CKD-EPI)NonAf 57 (>60 ml/min/1.73 sqM) Glucose 136 H (74-99) mg/dL Calcium 9.4 (8.4-10.2) mg/dL Magnesium 1.5 L (1.6-2.3) mg/dL Total Bilirubin 0.7 (0.2-1.3) mg/dL AST 19 (17-59) U/L ALT 18 (4-49) U/L Alkaline Phosphatase 53 (38-126) U/L Troponin I (0.000-0.034) ng/mL Total Protein 6.4 (6.3-8.2) g/dL Albumin 3.8 (3.5-5.0) g/dL Blood Type Blood Type Recheck Bld Type Recheck Status Antibody Screen Spec Expiration Date 03/23/23 03/23/23 Range/Units 09:27 09:27 WBC (3.8-10.6) k/uL RBC (4.30-5.90) m/uL Hgb (13.0-17.5) gm/dL Hct (39.0-53.0) % MCV (80.0-100.0) fL MCH (25.0-35.0) pg MCHC (31.0-37.0) g/dL RDW (11.5-15.5) % Plt Count (150-450) k/uL MPV Neutrophils % % Lymphocytes % % Monocytes % % Eosinophils % % Basophils % % Neutrophils # (1.3-7.7) k/uL Lymphocytes # (1.0-4.8) k/uL Monocytes # (0-1.0) k/uL Eosinophils # (0-0.7) k/uL Basophils # (0-0.2) k/uL PT (9.0-12.0) sec INR (<1.2) APTT (22.0-30.0) sec Sodium (137-145) mmol/L Potassium (3.5-5.1) mmol/L Chloride (98-107) mmol/L Carbon Dioxide (22-30) mmol/L Anion Gap mmol/L BUN (9-20) mg/dL Creatinine (0.66-1.25) mg/dL Est GFR (CKD-EPI)AfAm (>60 ml/min/1.73 sqM) Est GFR (CKD-EPI)NonAf (>60 ml/min/1.73 sqM) Glucose (74-99) mg/dL Calcium (8.4-10.2) mg/dL Magnesium (1.6-2.3) mg/dL Total Bilirubin (0.2-1.3) mg/dL AST (17-59) U/L ALT (4-49) U/L Alkaline Phosphatase (38-126) U/L Troponin I <0.012 (0.000-0.034) ng/mL Total Protein (6.3-8.2) g/dL Albumin (3.5-5.0) g/dL Blood Type O Positive Blood Type Recheck O Pos Bld Type Recheck Status No Antibody Screen NEGATIVE Spec Expiration Date 03/26/20232326 Disposition Clinical Impression: Gastrointestinal hemorrhage Disposition: ADMITTED IP TO THIS [facility] Referrals: Kunal Menon MD [Primary Care Provider] - 1-2 days Time of Disposition: 10:48
[2023-03-23] MEDS ORDERED: PANTOPRAZOLE 40 MG/10 ML VIAL IVP STA (10:21)
[2023-03-23] MEDS ORDERED: SODIUM CHLORIDE 0.9% 500 ML 500 ML IV ONE (10:33)
[2023-03-23] MEDS ORDERED: SODIUM CHLORIDE 0.9% 1,000 ML IV ONE (10:49)
[2023-03-23] MEDS ORDERED: MAGNESIUM SULFATE-D5W PMX 1 GM in DEXTROSE/WATER 1 100ML.BAG IVPB ONE (11:07)
--- NOTE | 2023-03-23 11:09 | P.GSCN ---
History of Present Illness Consult date: 03/23/23 History of present illness: CHIEF COMPLAINT: GI bleed HISTORY OF PRESENT ILLNESS: This is a 68-year-old male who presented to hospital with complaints of black stools and 1 episode of black emesis that started yesterday morning. Patient does report pain in the middle left side of abdomen. He reports having a GI bleed in June 2022 at that time did require transfer to [facility]. Patient reports EGD was completed there and was unremarkable. Hemoglobin on admission was 11.6. He denies any NSAID use or any blood thinners. Last colonoscopy was in December 2019 that did show diverticulosis. Patient denies any chest pain or shortness breath. He has had some hypotension. He has received IV fluid boluses. He's been started on IV Protonix. Denies any prior history of stomach ulcers. PAST MEDICAL HISTORY: Diabetes, hypertension, hyperlipidemia, hypothyroid, GI bleed, SVT PAST SURGICAL HISTORY: Cardiac ablation, heart catheterization MEDICATIONS: See below ALLERGIES: See below SOCIAL HISTORY: No illicit drug use. REVIEW OF SYSTEMS: CONSTITUTIONAL: Denies fever or chills. HEENT: Denies blurred vision, vision changes, or eye pain. Denies hemoptysis CARDIOVASCULAR: Denies chest pain or pressure. RESPIRATORY: No shortness of breath. GASTROINTESTINAL: See HPI for pertinent findings HEMATOLOGIC: Denies bleeding disorders. GENITOURINARY: Denies any blood in urine or increased urinary frequency. SKIN: Denies pruitis. Denies rash. PHYSICAL EXAM: VITAL SIGNS: Reviewed GENERAL: Well-developed in no acute distress. HEENT: No sclera icterus. Extraocular movements grossly intact. Moist buccal mucosa. Head is atraumatic, normocephalic. No nasal drainage. ABDOMEN: Soft. Nondistended. Tenderness to palpation left side of the umbilicus NEUROLOGIC: Alert and oriented. Cranial nerves II through XII grossly intact. LABORATORY DATA: WBC 9.3 hgb 11.6 platelets 231 Sodium 138 potassium 4.5 creatinine 1.29 Magnesium 1.5 LFTs normal Troponin negative IMAGING: ASSESSMENT: 1. Acute GI bleed with melanotic stools and one episode of black emesis 2. Hypomagnesemia PLAN: -Patient scheduled for EGD today with Dr. Rice -Keep patient nothing by mouth -Continue IV Protonix twice a day -Continue IV fluids -Replacing magnesium Thank you for this consultation Physician Technical Clerk note has been reviewed by physician. Signing provider agrees with the documented findings, assessment, and plan of care. I have personally seen and examined the patient, reviewed the DENSITOMETER READER /PAs history, exam and MDM and agree with the assessment and plan as written. Based on total visit time, I have performed more than 50% of the visit. As above: Patient with suspected upper GI bleed. Apparently he refused transfer to tertiary [facility] for gastroenterology consultation. We were consulted therefore because of this admission. We'll proceed with EGD today. Further recommendations to follow. Past Medical History Past Medical History: Diabetes Mellitus, GI Bleed, Hypertension, Supraventric ular Tachycardia (SVT), Thyroid Disorder History of Any Multi-Drug Resistant Organisms: None Reported Past Surgical History: Cardiac Ablation, Heart Catheterization Past Anesthesia/Blood Transfusion Reactions: No Reported Reaction Past Psychological History: No Psychological Hx Reported Smoking Status: Never smoker Past Alcohol Use History: None Reported Past Drug Use History: None Reported - Past Family History Brother(s) Family Medical History: Diabetes Mellitus Medications and Allergies Home Medications Medication Instructions Recorded Confirmed Type Levothyroxine Sodium [Synthroid] 100 mcg PO DAILY 12/30/16 03/23/23 History Simvastatin [Zocor] 20 mg PO DAILY 12/30/16 03/23/23 History metFORMIN HCL [metFORMIN HCL ER] 750 mg PO DAILY 12/30/16 03/23/23 History lisinopriL [Zestril] 10 mg PO DAILY 01/04/20 03/23/23 History Allergies Allergy/AdvReac Type Severity Reaction Status Date / Time No Known Allergies Allergy Verified 03/23/23 09:43 Surgical - Exam Vital Signs Temp Pulse Resp BP Pulse Ox 97.5 F L 74 18 108/71 100 03/23/23 08:56 03/23/23 08:56 03/23/23 08:56 03/23/23 08:56 03/23/23 08:56 Results - Labs 03/23/23 09:27 03/23/23 09:27 Abnormal Lab Results - Last 24 Hours (Table) 03/23/23 03/23/23 Range/Units 09:27 09:27 RBC 3.87 L (4.30-5.90) m/uL Hgb 11.6 L (13.0-17.5) gm/dL Hct 33.4 L (39.0-53.0) % BUN 52 H (9-20) mg/dL Creatinine 1.29 H (0.66-1.25) mg/dL Glucose 136 H (74-99) mg/dL Magnesium 1.5 L (1.6-2.3) mg/dL Diabetes panel 03/23/23 Range/Units 09:27 Sodium 138 (137-145) mmol/L Potassium 4.5 (3.5-5.1) mmol/L Chloride 107 (98-107) mmol/L Carbon Dioxide 24 (22-30) mmol/L BUN 52 H (9-20) mg/dL Creatinine 1.29 H (0.66-1.25) mg/dL Glucose 136 H (74-99) mg/dL Calcium 9.4 (8.4-10.2) mg/dL AST 19 (17-59) U/L ALT 18 (4-49) U/L Alkaline Phosphatase 53 (38-126) U/L Total Protein 6.4 (6.3-8.2) g/dL Albumin 3.8 (3.5-5.0) g/dL Calcium panel 03/23/23 Range/Units 09:27 Calcium 9.4 (8.4-10.2) mg/dL Albumin 3.8 (3.5-5.0) g/dL Pituitary panel 03/23/23 Range/Units 09:27 Sodium 138 (137-145) mmol/L Potassium 4.5 (3.5-5.1) mmol/L Chloride 107 (98-107) mmol/L Carbon Dioxide 24 (22-30) mmol/L BUN 52 H (9-20) mg/dL Creatinine 1.29 H (0.66-1.25) mg/dL Glucose 136 H (74-99) mg/dL Calcium 9.4 (8.4-10.2) mg/dL Adrenal panel 03/23/23 Range/Units 09:27 Sodium 138 (137-145) mmol/L Potassium 4.5 (3.5-5.1) mmol/L Chloride 107 (98-107) mmol/L Carbon Dioxide 24 (22-30) mmol/L BUN 52 H (9-20) mg/dL Creatinine 1.29 H (0.66-1.25) mg/dL Glucose 136 H (74-99) mg/dL Calcium 9.4 (8.4-10.2) mg/dL Total Bilirubin 0.7 (0.2-1.3) mg/dL AST 19 (17-59) U/L ALT 18 (4-49) U/L Alkaline Phosphatase 53 (38-126) U/L Total Protein 6.4 (6.3-8.2) g/dL Albumin 3.8 (3.5-5.0) g/dL
[2023-03-23] MEDS ORDERED: PROPOFOL 10 MG/ML 20 ML VIAL IV ONE (13:21)
[2023-03-23] MEDS ORDERED: LIDOCAINE 2% INJ 20 MG/ML (2 ML VIAL) ONE (13:21)
[2023-03-23] MEDS ORDERED: ePHEDrine 50 MG/ML 1 ML VIAL ONE (13:21)
[2023-03-23] MEDS ORDERED: IV FLUID CONTINUATION 900 ML IV ONE (13:32)
--- NOTE | 2023-03-23 13:44 | P.PCN ---
Date of Procedure: 03/23/23 Procedure(s) Performed: Preoperative Dx: Upper GI bleed Postoperative Dx: Hiatal hernia, distal esophagitis, suspected Palacios's esophagus Procedure: EGD with Bx Anesthesia: Sedation Endoscopist: Dr. Rice Specimens: Distal esophagus Endoscopic Procedure: The patient was on the endoscopy table in the left decubitus position. The Olympus gastroscope was inserted into the oropharynx and passed under direct visualization to the proximal jejunum. From that point the scope was slowly withdrawn inspecting all surfaces carefully. There were no neoplastic inflammatory or polypoid lesions throughout the duodenum. The pylorus was widely patent. The stomach was carefully inspected. There was minimal gastritis present. Retroflexion revealed a small moderate sized hiatal hernia. The GE junction was present 3 cm above the diaphragmatic hiatus. The stomach above the diaphragm appeared normal. At the distal esophagus there was circumferential inflammatory changes present. There was a salmon colored mucosa suspicious for Palacios's esophagus. There was a small 2-3 mm nodular area of inflammation that may have represented a recent source of bleeding. Biopsies of the distal esophagus took place. The remainder the esophagus appear normal. The patient was then taken to the recovery room in stable condition per anesthesia guidelines. Recommendations: Continue antiacid therapy. Resume liquid diet. Will require repeat EGD in 2-3 years at minimum. Will follow.
--- NOTE | 2023-03-23 15:21 | P.HPIM ---
History of Present Illness H&P Date: 03/23/23 Patient is a 68-year-old male with PMH of hypertension, dyslipidemia and hypothyroidism presenting to the ED with melanotic stools and one episode of black emesis since yesterday morning. He denies any use of NSAIDs or blood thinners. He denies any history of GERD or gastritis. Of note, he reports colonoscopy done in December [address] Butler which showed diverticulosis. He denies any headache, lower extremity edema, fever or chills, cough, chest pain, shortness of breath, palpitations, changes in urination. No changes in appetite or weight. He denies any dizziness, numbness/weakness/tingling of extremities. In the ED, his vital signs were stable. CBC showed hemoglobin of 11.6. Coagulation panel within normal limits. BMP showed BUN of 52, creatinine 1.9, glucose 136, magnesium 1.5. Troponin was less than 0.012. Patient was admitted for upper GI bleed with general surgery on consult. He underwent EGD which showed hiatal hernia, distal esophagitis, suspected Palacios's esophagus. Biopsies were taken. Pertinent positives and negatives as discussed in HPI, a complete review of systems was performed and all other systems are negative. General: non toxic, no distress, appears at stated age Derm: warm, dry Head: atraumatic, normocephalic, symmetric Eyes: EOMI, no lid lag, anicteric sclera Mouth: no lip lesion, mucus membranes moist Cardiovascular: S1S2 reg, no murmur Lungs: CTA bilateral, no rhonchi, no rales , no accessory muscle use Ext: no gross muscle atrophy, no edema, no contractures Neuro: no focal neuro deficits Psych: Alert, oriented, appropriate affect Upper GI bleed Hiatal hernia Esophagitis Hypotension Acute kidney injury Hypomagnesemia Chronic conditions: hypertension, dyslipidemia and hypothyroidism Based on my assessment of this patient, this patient meets a high complexity level of care. Patient has an acute diagnosis of melanoma and hematemesis that poses a threat to life or bodily function. His hemoglobin on admission is 11.6. He also seems to have an acute kidney injury. Elevated BUN could be a result of GI bleed. He underwent EGD which showed hiatal hernia, distal esophagitis, suspected Palacios's esophagus. Start Protonix 40 mg IV twice a day. Postoperatively, his BP is as low as 88/58. He is asymptomatic. He will be started on normal saline at 75 mL per hour. Lisinopril will be held. I have reviewed the following eco industrial development consultant notes: None. I have reviewed the results of the following tests: CBC showed hemoglobin of 11.6. Coagulation panel within normal limits. BMP showed BUN of 52, creatinine 1.9, glucose 136, magnesium 1.5. Troponin was less than 0.012. I have ordered the following tests: CBC ordered for tomorrow morning. I have discussed the care of this patient with the following independent histori an: None. I have independently interpreted the following test below: None. I have discussed the management of this patient with the following physician: Case discussed with the ED physician and decision made to admit the patient for upper GI bleed and possible upper endoscopy. FULL CODE. SCDs for DVT prophylaxis. Past Medical History Past Medical History: Diabetes Mellitus, GI Bleed, Hypertension, Supraventricular Tachycardia (SVT), Thyroid Disorder History of Any Multi-Drug Resistant Organisms: None Reported Past Surgical History: Cardiac Ablation, Heart Catheterization Past Anesthesia/Blood Transfusion Reactions: No Reported Reaction Past Psychological History: No Psychological Hx Reported Smoking Status: Never smoker Past Alcohol Use History: None Reported Past Drug Use History: None Reported - Past Family History Brother(s) Family Medical History: Diabetes Mellitus Medications and Allergies Home Medications Medication Instructions Recorded Confirmed Type Levothyroxine Sodium [Synthroid] 100 mcg PO DAILY 12/30/16 03/23/23 History Simvastatin [Zocor] 20 mg PO DAILY 12/30/16 03/23/23 History metFORMIN HCL [metFORMIN HCL ER] 750 mg PO DAILY 12/30/16 03/23/23 History lisinopriL [Zestril] 10 mg PO DAILY 01/04/20 03/23/23 History Allergies Allergy/AdvReac Type Severity Reaction Status Date / Time No Known Allergies Allergy Verified 03/23/23 09:43 Physical Exam Vitals: Vital Signs Temp Pulse Pulse Resp BP BP Pulse Ox 03/23/23 13:50 97.7 F 67 16 96/58 96 03/23/23 12:57 97.9 F 60 16 90/55 03/23/23 12:20 58 L 16 88/58 03/23/23 10:55 67 18 95/69 100 03/23/23 09:23 77 18 100 03/23/23 08:56 97.5 F L 74 18 108/71 100 Intake and Output 03/22/23 03/23/23 03/23/23 22:59 06:59 14:59 Intake Total 400 Balance 400 Intake: IV 400 Other: Weight 78.925 kg Results CBC & Chem 7: 03/23/23 09:27 03/23/23 09:27 Labs: Abnormal Lab Results - Last 24 Hours (Table) 03/23/23 03/23/23 Range/Units 09:27 09:27 RBC 3.87 L (4.30-5.90) m/uL Hgb 11.6 L (13.0-17.5) gm/dL Hct 33.4 L (39.0-53.0) % BUN 52 H (9-20) mg/dL Creatinine 1.29 H (0.66-1.25) mg/dL Glucose 136 H (74-99) mg/dL Magnesium 1.5 L (1.6-2.3) mg/dL
[2023-03-23 16:28] LABS: Basophils % (A) 0 %; Eosinophils # (A) 0.1 k/uL (0-0.7); Eosinophils % (A) 1 %; HCT 28.3 % (39.0-53.0); Lymphocytes % (A) 36 %; MCH 30.2 pg (25.0-35.0); MCHC 34.2 g/dL (31.0-37.0); MCV 88.3 fL (80.0-100.0); Mean Platelet Volume 7.3; Monocytes # (A) 0.2 k/uL (0-1.0); Monocytes % (A) 2 %; Neutrophils # (A) 4.9 k/uL (1.3-7.7); Neutrophils % (A) 59 %; Platelet Count 207 k/uL (150-450); RBC 3.21 m/uL (4.30-5.90); WBC 8.2 k/uL (3.8-10.6)
[2023-03-23 16:49] LABS: HGB 9.7 gm/dL (13.0-17.5)
[2023-03-23 17:30] LABS: Glucose,Whole Blood 106 mg/dL (70-110)
[2023-03-23 20:28] LABS: Glucose,Whole Blood 91 mg/dL (70-110)
[2023-03-23] MEDS: PANTOPRAZOLE 40 MG/10 ML VIAL IVP SCH (20:40)
[2023-03-24 00:58] LABS: Basophils % (A) 0 %; Eosinophils # (A) 0.2 k/uL (0-0.7); Eosinophils % (A) 2 %; HCT 27.1 % (39.0-53.0); HGB 9.1 gm/dL (13.0-17.5); Lymphocytes # (A) 2.6 k/uL (1.0-4.8); Lymphocytes % (A) 26 %; MCH 30.3 pg (25.0-35.0); MCHC 33.4 g/dL (31.0-37.0); MCV 90.7 fL (80.0-100.0); Mean Platelet Volume 7.5; Monocytes # (A) 0.4 k/uL (0-1.0); Monocytes % (A) 3 %; Neutrophils % (A) 68 %; Platelet Count 193 k/uL (150-450); RBC 2.99 m/uL (4.30-5.90); RDW 12.9 % (11.5-15.5); WBC 10.3 k/uL (3.8-10.6)
[2023-03-24] MEDS ORDERED: LEVOTHYROXINE 100 MCG TAB PO SCH (06:30)
[2023-03-24 07:51] LABS: Glucose,Whole Blood 96 mg/dL (70-110)
[2023-03-24 08:19] LABS: African American GFR (CKD) 72 (>60 ml/min/1.73 sqM); Anion Gap 3 mmol/L; Blood Urea Nitrogen 33 mg/dL (9-20); Calcium 8.4 mg/dL (8.4-10.2); Carbon Dioxide 26 mmol/L (22-30); Chloride 109 mmol/L (98-107); Glucose 89 mg/dL (74-99); Non-African American GFR(CKD) 62 (>60 ml/min/1.73 sqM); Potassium 4.1 mmol/L (3.5-5.1); Sodium 138 mmol/L (137-145)
[2023-03-24 08:20] VITALS: RESP 16
[2023-03-24] MEDS: PANTOPRAZOLE 40 MG/10 ML VIAL IVP SCH (08:45)
[2023-03-24] MEDS ORDERED: ATORVASTATIN 10 MG TAB PO SCH (09:00)
[2023-03-24] MEDS ORDERED: lisinopriL 10 MG TAB PO SCH (09:00)
--- NOTE | 2023-03-24 10:39 | P.PN ---
Subjective Progress Note Date: 03/24/23 CHIEF COMPLAINT: GI Bleed HISTORY OF PRESENT ILLNESS: Patient is status post EGD revealed hiatal hernia, distal esophagitis, suspected Palacios's esophagus. Patient denies any abdominal pain. He has had no further black stools or any nausea or vomiting. Afebrile. WBC 10.3 HGB stable 9.1. PHYSICAL EXAM: VITAL SIGNS: Reviewed. GENERAL: Well-developed in no acute distress. HEENT: No sclera icterus. Extraocular movements grossly intact. Moist buccal mucosa. Head is atraumatic, normocephalic. ABDOMEN: Soft. Nondistended. Nontender. NEUROLOGIC: Alert and oriented. Cranial nerves II through XII grossly intact. ASSESSMENT: 1. Acute GI bleed with melanotic stools and one episode of black emesis. Status post EGD revealing hiatal hernia, distal esophagitis, suspected Palacios's esophagus 2. Anemia due to GI PLAN: -Okay for discharge from surgical standpoint -Agree with advancing diet to regular -Continue PPI at discharge -Follow up on biopsy results outpatient -Repeat EGD in 2-3 years Physician Assembly Machine Tender note has been reviewed by physician. Signing provider agrees with the documented findings, assessment, and plan of care. I have personally seen and examined the patient, reviewed the JACK WINDER /PAs history, exam and MDM and agree with the assessment and plan as written. Based on total visit time, I have performed more than 50% of the visit. As above: This morning patient complaining of mild nausea. Labs noted. Continue antiacids. Resume solid food diet. If tolerates May discharge. Objective - Vital Signs Vital signs: Vital Signs Temp 97.8 F 03/24/23 07:00 Pulse 56 L 03/24/23 07:00 Resp 16 03/24/23 07:00 BP 92/51 03/24/23 07:00 Pulse Ox 100 03/24/23 07:00 FiO2 Intake & Output 03/23/23 03/24/23 03/24/23 18:59 06:59 18:59 Intake Total 400 298 Balance 400 298 Weight 78.925 kg Intake: IV 400 Oral 298 Other: Voiding Method Toilet # Voids 1 2 # Bowel Movements 0 - Labs CBC & Chem 7: 03/24/23 00:05 03/24/23 06:11 Labs: Abnormal Lab Results - Last 24 Hours (Table) 03/23/23 03/24/23 03/24/23 Range/Units 16:03 00:05 06:11 RBC 3.21 L 2.99 L (4.30-5.90) m/uL Hgb 9.7 L D 9.1 L (13.0-17.5) gm/dL Hct 28.3 L 27.1 L (39.0-53.0) % Chloride 109 H (98-107) mmol/L BUN 33 H (9-20) mg/dL
--- NOTE | 2023-03-24 10:52 | P.DS ---
Providers Date of admission: 03/23/23 10:49 Expected date of discharge: 03/24/23 Attending physician: Stephanie Avery DO Consults: 03/23/23 10:49 Consult Physician Urgent Consulting Provider: Robin Rice Consult Reason/Comments: GI bleed Do you want consulting provider notified?: Yes Primary care physician: Kunal Y [facility] Course: Patient is a 68-year-old male with PMH of hypertension, dyslipidemia and hypothyroidism presenting to the ED with melanotic stools and one episode of black emesis since yesterday morning. He denies any use of NSAIDs or blood thinners. He denies any history of GERD or gastritis. Of note, he reports colonoscopy done in December [address] Butler which showed diverticulosis. He denies any headache, lower extremity edema, fever or chills, cough, chest pain, shortness of breath, palpitations, changes in urination. No changes in appetite or weight. He denies any dizziness, numbness/weakness/tingling of extremities. In the ED, his vital signs were stable. CBC showed hemoglobin of 11.6. Coagulation panel within normal limits. BMP showed BUN of 52, creatinine 1.9, glucose 136, magnesium 1.5. Troponin was less than 0.012. Patient was admitted for upper GI bleed with general surgery on consult. He underwent EGD which showed hiatal hernia, distal esophagitis, suspected Palacios's esophagus. Biopsies were taken. Hemoglobin downtrended from 11.6 to 9.1 on the day of discharge. He was seen and examined the morning of discharge. He reported no complaints. Denied any chest pain, SOB, palpitations or dizziness. He had no bowel movements after his EGD but was able to pass gas. No more vomiting. General: non toxic, no distress, appears at stated age Derm: warm, dry Head: atraumatic, normocephalic, symmetric Eyes: EOMI, no lid lag, anicteric sclera Mouth: no lip lesion, mucus membranes moist Cardiovascular: S1S2 reg, no murmur Lungs: CTA bilateral, no rhonchi, no rales , no accessory muscle use Ext: no gross muscle atrophy, no edema, no contractures Neuro: no focal neuro deficits Psych: Alert, oriented, appropriate affect Discharge Diagnosis: Upper GI bleed Hiatal hernia Esophagitis Hypotension Acute kidney injury Hypomagnesemia Chronic conditions: hypertension, dyslipidemia and hypothyroidism Patient will be discharged home with the following instructions: Diet: Regular Follow up with your PCP within 1-2 days of discharge. Follow up with Surgery Dr. Rice within 1 week of discharge. Follow up results of biopsy with Dr. Rice. Take Protonix 40 mg PO BID. You will need repeat EGD in 2-3 years. Hold Lisinopril for SBP < 120 or DBP < 80. Come back to the ED for dizziness, black stools, vomiting blood, blood in your stool. Repeat CBC in 3 days, follow up results with your PCP. This complex discharge took 35 minutes to complete. Patient Condition at Discharge: Stable Plan - Discharge Summary Discharge Rx Participant: Yes New Discharge Prescriptions: New Pantoprazole [Protonix] 40 mg PO BID-W/MEALS #60 tab Continue Simvastatin [Zocor] 20 mg PO DAILY Levothyroxine Sodium [Synthroid] 100 mcg PO DAILY metFORMIN HCL [metFORMIN HCL ER] 750 mg PO DAILY Discontinued lisinopriL [Zestril] 10 mg PO DAILY Discharge Medication List Levothyroxine Sodium [Synthroid] 100 mcg PO DAILY 12/30/16 [History] Simvastatin [Zocor] 20 mg PO DAILY 12/30/16 [History] metFORMIN HCL [metFORMIN HCL ER] 750 mg PO DAILY 12/30/16 [History] Pantoprazole [Protonix] 40 mg PO BID-W/MEALS #60 tab 03/24/23 [Rx] Follow up Appointment(s)/Referral(s): Robin Rice MD [Medical Doctor] - 04/01/23 9:50 am Kunal Menon MD [Primary Care Provider] - 1-2 days Ambulatory/Diagnostic Orders: Complete Blood Count w/diff [LAB.AMB] Time Frame: 3 Days, Location: None Selected Activity/Diet/Wound Care/Special Instructions: Diet: Regular Follow up with your PCP within 1-2 days of discharge. Follow up with Surgery Dr. Rice within 1 week of discharge. Follow up results of biopsy with Dr. Rice. Take Protonix 40 mg PO BID. You will need repeat EGD in 2-3 years. Hold Lisinopril for SBP < 120 or DBP < 80. Come back to the ED for dizziness, black stools, vomiting blood, blood in your stool. Repeat CBC in 3 days, follow up results with your PCP. Discharge Disposition: HOME SELF-CARE
[2023-03-24 12:07] VITALS: BP 93/53; PULSE 63; TEMP 97.7
[2023-03-24 12:39] LABS: Glucose,Whole Blood 105 mg/dL (70-110)
== END 2023-03-24 13:34 | disposition home or self-care (01) ==
LOC: EC 08:49 → 6NMEDSUR 10:49
PROVIDERS: ADMIT Internal Medicine; ATTEND Internal Medicine
DX: K29.51 Unspecified chronic gastritis with bleeding (principal); K20.91 Esophagitis, unspecified with bleeding; K44.9 Diaphragmatic hernia without obstruction or gangrene; E83.42 Hypomagnesemia; D64.9 Anemia, unspecified; I95.9 Hypotension, unspecified; N17.9 Acute kidney failure, unspecified; E11.9 Type 2 diabetes mellitus without complications; I10 Essential (primary) hypertension; E78.5 Hyperlipidemia, unspecified; E03.9 Hypothyroidism, unspecified; Z79.84 Long term (current) use of oral hypoglycemic drugs; Z79.890 Hormone replacement therapy; Z79.899 Other long term (current) drug therapy
CPT/HCPCS: 96361; 96365; 96375; 99285; 36415; 86900; 86901; 88305; 80053; 80048; 83735; 84484; 85025 ×2; 85610; 85730; 86850; 43239; G0378 ×2; J3475; J2704; C9113 ×2; J2001

== ENCOUNTER 2023-06-29 07:40 | Day surgery (SDC) | payer MEDICARE ==
[2023-06-29 08:09] VITALS: TEMP 96.7
[2023-06-29] MEDS: LACTATED RINGERS 1,000 ML IV SCH ×2 (08:18→08:24)
[2023-06-29 08:19] LABS: Glucose,Whole Blood 122 mg/dL (70-110)
[2023-06-29] MEDS ORDERED: PROPOFOL 10 MG/ML 20 ML VIAL IV ONE (08:27)
--- NOTE | 2023-06-29 08:32 | P.GSHP ---
History of Present Illness H&P Date: 06/29/23 Chief Complaint: GERD 68-year-old male here for EGD. Underwent EGD in February showing significant esophagitis. No dysphagia. Feels better. Taking PPI daily. Past Medical History Past Medical History: Diabetes Mellitus, GERD/Reflux, GI Bleed, Hyperlipidemia, Supraventricular Tachycardia (SVT), Thyroid Disorder History of Any Multi-Drug Resistant Organisms: None Reported Past Surgical History: Cardiac Ablation, Heart Catheterization Past Anesthesia/Blood Transfusion Reactions: No Reported Reaction Smoking Status: Never smoker - Past Family History Brother(s) Family Medical History: Diabetes Mellitus Medications and Allergies Home Medications Medication Instructions Recorded Confirmed Type Levothyroxine Sodium [Synthroid] 100 mcg PO DAILY 12/30/16 06/29/23 History Simvastatin [Zocor] 20 mg PO DAILY 12/30/16 06/29/23 History metFORMIN HCL [metFORMIN HCL ER] 750 mg PO DAILY 12/30/16 06/29/23 History Pantoprazole [Protonix] 40 mg PO DAILY 06/22/23 06/29/23 History Allergies Allergy/AdvReac Type Severity Reaction Status Date / Time No Known Allergies Allergy Verified 06/29/23 08:10 Surgical - Exam Vital Signs Temp Pulse Resp BP Pulse Ox 96.7 F L 54 L 18 126/69 97 06/29/23 08:07 06/29/23 08:07 06/29/23 08:07 06/29/23 08:07 06/29/23 08:07 Physical exam: General: Well-developed, well-nourished HEENT: Normocephalic, sclerae nonicteric Abdomen: Nontender, nondistended Extremities: No edema Neuro: Alert and oriented Results - Labs Abnormal Lab Results - Last 24 Hours (Table) 06/29/23 Range/Units 08:15 POC Glucose (mg/dL) 122 H (70-110) mg/dL Assessment and Plan (1) GERD (gastroesophageal reflux disease) Narrative/Plan: Will proceed with EGD Current Visit: Yes Status: Acute Code(s): K21.9 - GASTRO-ESOPHAGEAL REFLUX DISEASE WITHOUT ESOPHAGITIS SNOMED Code(s): 487765394
--- NOTE | 2023-06-29 08:38 | P.PCN ---
Date of Procedure: 06/29/23 Procedure(s) Performed: Preoperative Dx: GERD Postoperative Dx: Mild gastritis, small hiatal hernia, short segment of Palacios's esophagus Procedure: EGD with Bx Anesthesia: Sedation Endoscopist: Dr. Rice Specimens: Antrum, Palacios's Endoscopic Procedure: The patient was on the endoscopy table in the left decubitus position. The Olympus gastroscope was inserted into the oropharynx and passed under direct visualization to the region of the third portion of the duodenum. From that point the scope was slowly withdrawn inspecting all surfaces carefully. There were no neoplastic inflammatory or polypoid lesions throughout the duodenum. The pylorus was widely patent. The stomach was carefully inspected. There was mild gastritis present. A biopsy of the antrum took place to rule out H. pylori. Retroflexion revealed a small hiatal hernia. The GE junction was present 2 cm above the diaphragm. The distal esophagus had a segment of salmon-colored mucosa consistent with Palacios's esophagus measuring 2-3 cm in length. Minimal inflammation was seen associated with the Palacios's. The remainder the esophagus appear normal. The patient was then taken to the recovery room in stable condition per anesthesia guidelines. Recommendations: Await biopsy results. Continue antiacids. Repeat 3 years.
[2023-06-29 08:54] LABS: Glucose,Whole Blood 129 mg/dL (70-110)
[2023-06-29 08:56] VITALS: BP 119/73; PULSE 48; RESP 14
== END 2023-06-29 09:19 ==
LOC: ORWHC2ENDO 07:40
PROVIDERS: ATTEND Surgery
DX: K29.50 Unspecified chronic gastritis without bleeding (principal); K44.9 Diaphragmatic hernia without obstruction or gangrene; K21.9 Gastro-esophageal reflux disease without esophagitis; K22.70 Barrett's esophagus without dysplasia; E78.5 Hyperlipidemia, unspecified; E11.9 Type 2 diabetes mellitus without complications; Z95.5 Presence of coronary angioplasty implant and graft; Z83.3 Family history of diabetes mellitus; Z79.890 Hormone replacement therapy; Z79.899 Other long term (current) drug therapy
CPT/HCPCS: 88305; 43239; J2704